=== PATIENT | male | born 1970 | race African-American/Black ===

== ENCOUNTER 2016-10-02 17:32 | Emergency (ER) | payer SELFPAY ==
[2016-10-02] MEDS ORDERED: NS 0.9% 1000 ML* 1,000 ML IV SCH (18:30)
[2016-10-02] MEDS ORDERED: NS 0.9% 1000 ML* 1,000 ML IV ONE (18:31)
[2016-10-02 18:47] LABS: Hematocrit 45 % (42-52); Hemoglobin 15.1 g/dl (14.0-18.0); Mean Corpuscular HGB Conc 33 g/dl (31-36); Mean Corpuscular Hemoglobin 29 pg (27-31); Mean Corpuscular Volume 87 fL (80-94); Mean Platelet Volume 9 um3 (7.4-10.4); Red Blood Count 5.24 10^6/ul (4.0-5.4); Red Cell Distribution Width 14 % (10.5-15); White Blood Count 6.2 10^3/ul (3.5-10.8)
[2016-10-02] MEDS ORDERED: oxyCODONE TAB* 5 MG TAB PO ONE ×2 (18:53→21:09)
[2016-10-02] MEDS ORDERED: oxyCODONE TAB* 5 MG TAB ONE (18:57)
[2016-10-02 19:00] LABS: ALT 12 U/L (7-52); AST 18 U/L (13-39); Albumin 3.9 g/dL (3.2-5.2); Alkaline Phosphatase 74 U/L (34-104); Anion Gap 5 mmol/L (2-11); BUN/Creatinine Ratio 11.1 (8-20); Blood Urea Nitrogen 14 mg/dL (6-24); C Reactive Protein 64.59 mg/L (< 5.00); CO2 Carbon Dioxide 30 mmol/L (22-32); Calcium 9.3 mg/dL (8.6-10.3); Chloride 99 mmol/L (101-111); Creatine Kinase 80 U/L (10-223); EGFR African American 79.6 (>60); EGFR Non-African American 61.9 (>60); Globulin 3.7 g/dL (2-4); Glucose 103 mg/dL (70-100); Lipase 14 U/L (11.0-82.0); Sodium 134 mmol/L (133-145); Total Protein 7.6 g/dL (6.4-8.9)
[2016-10-02 19:28] LABS: Valproic Acid < 13.0 mcg/mL (50-100)
[2016-10-02 19:33] LABS: TSH (Thyroid Stimulating Horm) 0.29 mcIU/mL (0.34-5.60)
[2016-10-02 20:04] LABS: Urine Bacteria Absent (Absent); Urine Bilirubin Negative (Negative); Urine Glucose Negative (Negative); Urine Nitrite Negative (Negative)
[2016-10-02] MEDS ORDERED: Valproic Acid CAP(*) 250 MG PO ONE ×2 (20:14→20:15)
[2016-10-02] MEDS ORDERED: Phenytoin CAP(*) 100 MG CAP.ER PO ONE ×2 (20:16→20:18)
[2016-10-02] MEDS ORDERED: levETIRAcetam TAB* 500 MG PO ONE ×2 (20:19→20:20)
[2016-10-02] MEDS ORDERED: Amoxicillin/Clavulanate TAB* 875 MG PO ONE ×2 (20:49→20:50)
[2016-10-02 20:50] VITALS: BP 118/79
--- NOTE | 2016-10-02 20:52 | ED ---
Raghav Hoskins Alok, scribed for Daniel Godoy MD on 10/02/16 at 1938 . Complex/Multi-Sys Presentation - HPI Summary HPI Summary: Patient is a 46 year-old male with a history of seizures BIBA to [facility] for evaluation of seizure earlier today. He states that he also had two seizures yesterday, and has not been taking his seizure medication for the last 3 months. He has taken Keppra 400 mg QD, Dilantin 400 mg QD, and Depakote 1500 mg BID. He also reports URI-like symptoms including rhinorrhea, ear ache, sore throat, diffuse myalgia, and cough. - History Of Current Complaint Chief Complaint: EDSeizure Time Seen by Provider: 10/02/16 18:29 Hx Obtained From: Patient Onset/Duration: Gradual Onset, Lasting Minutes, Resolved Timing: Minutes Severity Currently: Mild Severity Initially: Moderate Associated Signs And Symptoms: Positive: Cough, Other - sore throat, ear ache, myalgia, rhinorrhea - Allergies/Home Medications Allergies/Adverse Reactions: Allergies Allergy/AdvReac Type Severity Reaction Status Date / Time Acetaminophen [From Tylenol] Allergy Vomiting Verified 10/02/16 19:33 Aspirin Allergy Vomiting Verified 10/02/16 19:33 Ibuprofen Allergy Vomiting Verified 10/02/16 19:33 Soy Allergy Allergy See Comment Verified 10/02/16 19:33 PMH/Surg Hx/FS Hx/Imm Hx Respiratory History: Reports: Hx Chronic Obstructive Pulmonary Disease (COPD) Neurological History: Reports: Hx CVA, Hx Seizures, Other Neuro Impairments/ Disorders - Vertigo, Addisons Infectious Disease History: Yes Infectious Disease History: Denies: Traveled Outside the [place] in Last 30 Days - Family History Known Family History: Positive: Cardiac Disease, Hypertension, Diabetes - Social History Occupation: Unemployed Lives: Alone Alcohol Use: None Substance Use Type: Reports: None Smoking Status (MU): Former Smoker Review of Systems Negative: Fever Positive: Sore Throat, Ear Ache, Nasal Discharge Positive: Cough Positive: Myalgia Neurological: Other - seizures All Other Systems Reviewed And Are Negative: Yes Physical Exam - Summary Physical Exam Summary: General: Well-appearing, no pain distress Skin: Warm, color reflects adequate perfusion, dry Head/Face: Normal Eyes: EOMI, MANUELA ENT: Normal Neck: Supple, nontender Respiratory: CTA, breath present Cardiovascular: RRR Abdominal: Nontender, soft Bowel: Present Misc: Normal; strength/ROM intact Neuro: Normal; sensory/motor intact, A&Ox3. Numbness right lower cheek. Psych: Affect/mood appropriate Triage Information Reviewed: Yes Vital Signs On Initial Exam: Initial Vitals Temp Pulse Resp BP Pulse Ox 98.8 F 90 18 130/68 99 10/02/16 17:34 10/02/16 17:34 10/02/16 17:34 10/02/16 17:34 10/02/16 17:34 Vital Signs Reviewed: Yes - [place] Coma Scale Coma Scale Total: 15 Diagnostics - Vital Signs Vital Signs Temp Pulse Resp BP Pulse Ox 10/02/16 17:34 98.8 F 90 18 130/68 99 - Laboratory Lab Results: Lab Results 10/02/16 Range/Units 17:45 WBC 6.2 (3.5-10.8) 10^3/ul RBC 5.24 (4.0-5.4) 10^6/ul Hgb 15.1 (14.0-18.0) g/dl Hct 45 (42-52) % MCV 87 (80-94) fL MCH 29 (27-31) pg MCHC 33 (31-36) g/dl RDW 14 (10.5-15) % Plt Count 190 (150-450) 10^3/ul MPV 9 (7.4-10.4) um3 Neut % (Auto) 59.6 (38-83) % Lymph % (Auto) 23.0 L (25-47) % [place] % (Auto) 15.7 H (1-9) % Eos % (Auto) 1.0 (0-6) % Baso % (Auto) 0.7 (0-2) % Absolute Neuts (auto) 3.7 (1.5-7.7) 10^3/ul Absolute Lymphs (auto) 1.4 (1.0-4.8) 10^3/ul Absolute Monos (auto) 1.0 H (0-0.8) 10^3/ul Absolute Eos (auto) 0.1 (0-0.6) 10^3/ul Absolute Basos (auto) 0 (0-0.2) 10^3/ul Absolute Nucleated RBC 0.01 10^3/ul Nucleated RBC % 0.2 Result Diagrams: 10/02/16 17:45 10/02/16 17:45 Lab Statement: Any lab studies that have been ordered have been reviewed, and results considered in the medical decision making process. Re-Evaluation - Re-Evaluation First Eval Re-Evaluation Time: 20:44 Comment: Lab results reviewed and discussed with the patient. Complex Multi-Symp Course/Dx Assessment/Plan: PATIENT WILL CONTACT COMPUTER INFORMATION SYSTEMS PROFESSOR TOMORROW FOR ASSISTANCE ATTAINING INSURANCE TO GET HIS ANTI SEIZURE MEDICATIONS. URGENT RX FOR AUGMENTIN FOR SINUSITIS SX. DISCHARGE HOME STABLE. - Diagnoses Provider Diagnoses: Seizure disorder, Sinusitis Discharge - Discharge Plan Condition: Stable Disposition: HOME Prescriptions: Amoxicillin/Clavulanate TAB* [Augmentin TAB 875*] 875 mg PO BID #20 tab Patient Education Materials: Epilepsy (ED), Sinusitis (ED) Additional Instructions: FOLLOW UP WITH YOUR DOCTOR. TAKE THE AUGMENTIN (ANTIBIOTIC) DIRECTED. FOLLOW UP WITH YOUR BUILDING ASSOCIATE TO GET YOUR ANTI SEIZURE MEDICATION PRESCRIPTIONS. RETURN TO THE EMERGENCY DEPARTMENT FOR ANY WORSENING OF YOUR CONDITION OR QUESTIONS OR CONCERNS. The documentation as recorded by the Raghav weiss Alok accurately reflects the service I personally performed and the decisions made by me, Daniel Godoy MD.
== END 2016-10-02 20:50 | disposition home or self-care (01) ==
LOC: ED 17:32
DX: G40.909 Epilepsy, unspecified, not intractable, without status epilepticus (principal); J32.9 Chronic sinusitis, unspecified; H92.09 Otalgia, unspecified ear; R05 Cough; J02.9 Acute pharyngitis, unspecified; J34.89 Other specified disorders of nose and nasal sinuses; Z87.891 Personal history of nicotine dependence
CPT/HCPCS: 36415; 80053; 80164; 80177; 81003; 81015; 82550; 82553; 83605; 83690; 83735; 84443; 84484; 85025; 85610; 85730; 86140; 87086; 99284; A9270-GY

== ENCOUNTER 2016-11-04 00:27 | Emergency (ER) | payer MEDICAID ==
[2016-11-04] MEDS ORDERED: NS 0.9% 1000 ML* 1,000 ML IV ONE (00:31)
[2016-11-04] MEDS ORDERED: LORazepam INJ* 2 MG/ML 1 ML VIAL IV ONE (00:31)
[2016-11-04] MEDS ORDERED: levETIRAcetam IV* 500 MG in NS 0.9% 100 ML* 100 ML IVPB ONE (00:31)
[2016-11-04 02:07] LABS: Hematocrit 42 % (42-52); Hemoglobin 14.2 g/dl (14.0-18.0); Mean Corpuscular HGB Conc 34 g/dl (31-36); Mean Corpuscular Hemoglobin 29 pg (27-31); Mean Corpuscular Volume 88 fL (80-94); Mean Platelet Volume 8 um3 (7.4-10.4); Red Blood Count 4.83 10^6/ul (4.0-5.4); Red Cell Distribution Width 14 % (10.5-15); White Blood Count 4.5 10^3/ul (3.5-10.8)
[2016-11-04 02:14] LABS: Urine Bilirubin Negative (Negative); Urine Glucose Negative (Negative); Urine Nitrite Negative (Negative)
[2016-11-04 02:15] LABS: ALT 11 U/L (7-52); Albumin 3.5 g/dL (3.2-5.2); Alkaline Phosphatase 61 U/L (34-104); BUN/Creatinine Ratio 9.3 (8-20); Blood Urea Nitrogen 11 mg/dL (6-24); CO2 Carbon Dioxide 24 mmol/L (22-32); Calcium 8.1 mg/dL (8.6-10.3); Chloride 108 mmol/L (101-111); EGFR African American 85.9 (>60); EGFR Non-African American 66.8 (>60); Globulin 2.8 g/dL (2-4); Glucose 92 mg/dL (70-100); Magnesium 1.9 mg/dL (1.9-2.7); Sodium 140 mmol/L (133-145); Total Protein 6.3 g/dL (6.4-8.9)
[2016-11-04 02:17] LABS: AST 15 U/L (13-39); Anion Gap 8 mmol/L (2-11); Potassium 3.3 mmol/L (3.5-5.0)
[2016-11-04 02:18] LABS: Alcohol 112 mg/dL (<10)
--- NOTE | 2016-11-04 02:37 | ED ---
Dario Hoskins Billy, scribed for Ivan Puente MD on 11/04/16 at 0110 . Neurological HPI - HPI Summary HPI Summary: Patient is a 46 year-old male with a history of epilepsy coming to [facility] for evaluation of seizure today. Patient is BIBA from home after his girlfriend witnessed him have the seizure. His girlfriend states that he has been compliant with his medications. EMS states that when they arrived, the patient awoke and was alert and oriented, but he had another episode en route. Positive EtOH tonight.Pt on 4 anti convulsant meds, variable comoliance in past - History of Current Complaint Chief Complaint: EDSeizure Stated Complaint: AMS Time Seen by Provider: 11/04/16 00:30 Hx Obtained From: Family/Sound Installation Worker, EMS Onset/Duration: Sudden Onset Timing: Sudden Onset Onset Severity: Moderate Current Severity: Moderate Neurological Deficit Location: Generalized Seizure Character: Generalized Aggravating: Unknown Alleviating: Unknown - Allergy/Home Medications Allergies/Adverse Reactions: Allergies Allergy/AdvReac Type Severity Reaction Status Date / Time Acetaminophen [From Tylenol] Allergy Vomiting Verified 10/02/16 19:33 Aspirin Allergy Vomiting Verified 10/02/16 19:33 Ibuprofen Allergy Vomiting Verified 10/02/16 19:33 Soy Allergy Allergy See Comment Verified 10/02/16 19:33 PMH/Surg Hx/FS Hx/Imm Hx Respiratory History: Reports: Hx Chronic Obstructive Pulmonary Disease (COPD) Neurological History: Reports: Hx CVA, Hx Seizures, Other Neuro Impairments/ Disorders - Vertigo, Addisons Infectious Disease History: No Infectious Disease History: Denies: Traveled Outside the [place] in Last 30 Days - Family History Known Family History: Positive: Cardiac Disease, Hypertension, Diabetes - Social History Alcohol Use: None Substance Use Type: Reports: None Smoking Status (MU): Former Smoker Review of Systems Negative: Fever Neurological: Other - seizure All Other Systems Reviewed And Are Negative: Yes Physical Exam Triage Information Reviewed: Yes Vital Signs On Initial Exam: Initial Vitals Resp 24 11/04/16 00:41 Vital Signs Reviewed: Yes Appearance: Positive: No Pain Distress, Well-Nourished Skin: Positive: Warm Head/Face: Positive: Normal Head/Face Inspection Eyes: Positive: MANUELA ENT: Positive: Hearing grossly normal Neck: Positive: Supple, Nontender Respiratory/Lung Sounds: Positive: Breath Sounds Present Cardiovascular: Positive: RRR Abdomen Description: Positive: Nontender, Soft Bowel Sounds: Positive: Present Musculoskeletal: Positive: Strength/ROM Intact Neurological: Positive: Sensory/Motor Intact Psychiatric: Positive: Affect/Mood Appropriate Diagnostics - Vital Signs Vital Signs Temp Pulse Resp BP Pulse Ox 11/04/16 00:49 98.7 F 87 18 130/94 95 11/04/16 00:41 24 - Laboratory Lab Results: Lab Results 11/04/16 11/04/16 11/04/16 Range/Units 01:52 01:52 01:52 WBC 4.5 (3.5-10.8) 10^3/ul RBC 4.83 (4.0-5.4) 10^6/ul Hgb 14.2 (14.0-18.0) g/dl Hct 42 (42-52) % MCV 88 (80-94) fL MCH 29 (27-31) pg MCHC 34 (31-36) g/dl RDW 14 (10.5-15) % Plt Count 187 (150-450) 10^3/ul MPV 8 (7.4-10.4) um3 Neut % (Auto) 53.3 (38-83) % Lymph % (Auto) 35.3 (25-47) % [place] % (Auto) 9.2 H (1-9) % Eos % (Auto) 1.3 (0-6) % Baso % (Auto) 0.9 (0-2) % Absolute Neuts (auto) 2.4 (1.5-7.7) 10^3/ul Absolute Lymphs (auto) 1.6 (1.0-4.8) 10^3/ul Absolute Monos (auto) 0.4 (0-0.8) 10^3/ul Absolute Eos (auto) 0.1 (0-0.6) 10^3/ul Absolute Basos (auto) 0 (0-0.2) 10^3/ul Absolute Nucleated RBC 0.01 10^3/ul Nucleated RBC % 0.1 INR (Anticoag Therapy) 0.93 (0.89-1.11) Sodium 140 (133-145) mmol/L Potassium 3.3 L (3.5-5.0) mmol/L Chloride 108 (101-111) mmol/L Carbon Dioxide 24 (22-32) mmol/L Anion Gap 8 (2-11) mmol/L BUN 11 (6-24) mg/dL Creatinine 1.18 H (0.67-1.17) mg/dL Est GFR ( Amer) 85.9 (>60) Est GFR (Non-Af Amer) 66.8 (>60) BUN/Creatinine Ratio 9.3 (8-20) Glucose 92 (70-100) mg/dL Lactic Acid (0.5-2.0) mmol/L Calcium 8.1 L (8.6-10.3) mg/dL Magnesium 1.9 (1.9-2.7) mg/dL Total Bilirubin 0.30 (0.2-1.0) mg/dL AST 15 (13-39) U/L ALT 11 (7-52) U/L Alkaline Phosphatase 61 (34-104) U/L Total Protein 6.3 L (6.4-8.9) g/dL Albumin 3.5 (3.2-5.2) g/dL Globulin 2.8 (2-4) g/dL Albumin/Globulin Ratio 1.3 (1-3) Urine Color Urine Appearance Urine pH (5-9) Ur Specific Laie (1.010-1.030) Urine Protein (Negative) Urine Ketones (Negative) Urine Blood (Negative) Urine Nitrate (Negative) Urine Bilirubin (Negative) Urine Urobilinogen (Negative) Ur Leukocyte Esterase (Negative) Urine Glucose (Negative) Urine Ascorbic Acid (Negative) Serum Alcohol 112 H (<10) mg/dL 11/04/16 11/04/16 Range/Units 01:52 02:00 WBC (3.5-10.8) 10^3/ul RBC (4.0-5.4) 10^6/ul Hgb (14.0-18.0) g/dl Hct (42-52) % MCV (80-94) fL MCH (27-31) pg MCHC (31-36) g/dl RDW (10.5-15) % Plt Count (150-450) 10^3/ul MPV (7.4-10.4) um3 Neut % (Auto) (38-83) % Lymph % (Auto) (25-47) % [place] % (Auto) (1-9) % Eos % (Auto) (0-6) % Baso % (Auto) (0-2) % Absolute Neuts (auto) (1.5-7.7) 10^3/ul Absolute Lymphs (auto) (1.0-4.8) 10^3/ul Absolute Monos (auto) (0-0.8) 10^3/ul Absolute Eos (auto) (0-0.6) 10^3/ul Absolute Basos (auto) (0-0.2) 10^3/ul Absolute Nucleated RBC 10^3/ul Nucleated RBC % INR (Anticoag Therapy) (0.89-1.11) Sodium (133-145) mmol/L Potassium (3.5-5.0) mmol/L Chloride (101-111) mmol/L Carbon Dioxide (22-32) mmol/L Anion Gap (2-11) mmol/L BUN (6-24) mg/dL Creatinine (0.67-1.17) mg/dL Est GFR ( Amer) (>60) Est GFR (Non-Af Amer) (>60) BUN/Creatinine Ratio (8-20) Glucose (70-100) mg/dL Lactic Acid 1.8 (0.5-2.0) mmol/L Calcium (8.6-10.3) mg/dL Magnesium (1.9-2.7) mg/dL Total Bilirubin (0.2-1.0) mg/dL AST (13-39) U/L ALT (7-52) U/L Alkaline Phosphatase (34-104) U/L Total Protein (6.4-8.9) g/dL Albumin (3.2-5.2) g/dL Globulin (2-4) g/dL Albumin/Globulin Ratio (1-3) Urine Color Yellow Urine Appearance Clear Urine pH 5.0 (5-9) Ur Specific Laie 1.011 (1.010-1.030) Urine Protein Negative (Negative) Urine Ketones Negative (Negative) Urine Blood Negative (Negative) Urine Nitrate Negative (Negative) Urine Bilirubin Negative (Negative) Urine Urobilinogen Negative (Negative) Ur Leukocyte Esterase Negative (Negative) Urine Glucose Negative (Negative) Urine Ascorbic Acid * H (Negative) Serum Alcohol (<10) mg/dL Result Diagrams: 11/04/16 01:52 11/04/16 01:52 Lab Statement: Any lab studies that have been ordered have been reviewed, and results considered in the medical decision making process. NIH Scale - NIH Scale Level of Consciousness: Alert/Keenly Responsive Ask Patient the Month and His/Her Age: Both Correct Ask Pt to Open/Close Eyes and Towel Hemmer/Release Non-Paretic Hand: Both Correctly Best Gaze (Only Horizontal Eye Movement): Normal Visual Field Testing: No Visual Loss Facial Paresis-Pt to Smile & Close Eyes or Grimace Symmetry: Normal/Symmetrical Motor Function - Right Arm: No Drift-Holds 10 Seconds Motor Function - Left Arm: No Drift-Holds 10 Seconds Motor Function - Right Leg: No Drift-Holds 10 Seconds Motor Function - Left Leg: No Drift-Holds 10 Seconds Limb Ataxia-Must be out of Proportion to Weakness Present: Absent Sensory (Use Pinprick to Test Arms/Legs/Trunk/Face): Normal Best Language (Describe Picture, Name Items): No Aphasia Dysarthria (Read Several Words): Normal Extinction and Inattention: No Abnormality Total Score: 0 Re-Evaluation - Re-Evaluation First Eval Re-Evaluation Time: 03:00 Change: Improved - pt awake,given keppra, while in ed waiting room recuurent sz , informed pt on 4 meds levels drawn, subtherapeutic, loaded with dilantin Second Eval Re-Evaluation Time: 06:50 - no further seizures Change: Improved Course/Dx - Diagnoses Provider Diagnoses: Seizure Discharge - Discharge Plan Condition: Stable Disposition: HOME Patient Education Materials: Recurrent Seizures in Adults (ED) Referrals: Rosalinda Jones MD [Medical Doctor] - Tapan Morales MD [Primary Care Provider] - Additional Instructions: TAKE MEDICATIONS PRESCRIBED. DO NOT DRINK ALCOHOL. FOLLOW UP WITH NEUROLOGIST DR. JONES. The documentation as recorded by the Dario weiss Billy accurately reflects the service I personally performed and the decisions made by , Ivan Puente MD.
[2016-11-04] MEDS ORDERED: Phenytoin IV(*) 1,000 MG in NS 0.9% 250 ML* 250 ML IV ONE (05:16)
[2016-11-04 07:48] VITALS: BP 113/74
== END 2016-11-04 07:46 | disposition home or self-care (01) ==
LOC: ED 00:27
DX: R56.9 Unspecified convulsions (principal)
CPT/HCPCS: 36415; 80053; 80164; 80177; 80184; 80185; 80320; 81003; 83605; 83735; 85025; 85610; 96374; 99283; G0480; J1165; J2060

== ENCOUNTER 2016-11-04 19:27 | Inpatient (IN) | payer MEDICAID ==
--- NOTE | 2016-11-04 20:25 | ED ---
Hugh Hoskins Michael, scribed for Ivan Puente MD on 11/04/16 at 1955 . Altered Mental Status - HPI Summary HPI Summary: 46 y/o male was BIBA to the ED for evaluation of 5 sz episodes today. The girlfriend witnessed the sz episodes today, and while he was en route to the ED , the pt had 2 more sz episodes in the ambulance. He lost consciousness during the episode, and when the pt woke up he c/o a HOPE. He denies ETOH use today and states he has been compliant with his medication. The PMHx is significant for sz. He was seen on 11/04/16 at 0110 for a witnessed sz episode. - History Of Current Complaint Stated Complaint: SEIZURE Time Seen by Provider: 11/04/16 19:41 Hx Obtained From: Patient, EMS, Medical Records Onset/Duration: Suddenly Timing: Intermittent Severity Initially: Moderate Severity Currently: Mild Aggravating Factor(s): Unknown Alleviating Factor(s): Unknown Associated Signs And Symptoms: Positive: Seizure - LOC, Headache Related History: Seizure - Allergies/Home Medications Allergies/Adverse Reactions: Allergies Allergy/AdvReac Type Severity Reaction Status Date / Time Acetaminophen [From Tylenol] Allergy Vomiting Verified 10/02/16 19:33 Aspirin Allergy Vomiting Verified 10/02/16 19:33 Ibuprofen Allergy Vomiting Verified 10/02/16 19:33 Soy Allergy Allergy See Comment Verified 10/02/16 19:33 Home Medications: Home Medications Divalproex ER TAB(*) [Depakote ER TAB(*)] 1,500 mg PO BID 11/04/16 [History Confirmed 11/04/16] Fludrocortisone Acetate TAB* [Florinef TAB*] 0.2 mg PO DAILY 11/04/16 [History Confirmed 11/04/16] Phenytoin CAP(*) [Dilantin CAP(*)] 400 mg PO QAM 11/04/16 [History Confirmed ] levETIRAcetam TAB* [Keppra TAB*] 500 mg PO BID 11/04/16 [History Confirmed 11/04] Amoxicillin/Clavulanate TAB* 1 tab PO BID 11/05/16 [History Confirmed 11/05/16] PMH/Surg Hx/FS Hx/Imm Hx Respiratory History: Reports: Hx Chronic Obstructive Pulmonary Disease (COPD) Neurological History: Reports: Hx CVA, Hx Seizures, Other Neuro Impairments/ Disorders - Vertigo, Addisons - Family History Known Family History: Positive: Cardiac Disease, Hypertension, Diabetes - Social History Occupation: Unemployed Lives: Alone Alcohol Use: None Substance Use Type: Reports: None Smoking Status (MU): Former Smoker Review of Systems Negative: Fever Neurological: Other - sz Positive: Headache, Syncope All Other Systems Reviewed And Are Negative: Yes Physical Exam Vital Signs On Initial Exam: Initial Vitals Temp Pulse Resp BP Pulse Ox 97.9 F 85 16 122/53 100 11/04/16 19:57 11/04/16 19:57 11/04/16 19:57 11/04/16 19:57 11/04/16 19:57 Appearance: Positive: Well-Appearing, No Pain Distress Skin: Positive: Warm Head/Face: Positive: Normal Head/Face Inspection Eyes: Positive: MANUELA ENT: Positive: Hearing grossly normal Neck: Positive: Supple Respiratory/Lung Sounds: Positive: Clear to Auscultation, Breath Sounds Present Cardiovascular: Positive: RRR Abdomen Description: Positive: Nontender, Soft Musculoskeletal: Positive: Strength/ROM Intact Neurological: Positive: Sensory/Motor Intact Psychiatric: Positive: Affect/Mood Appropriate Diagnostics - Vital Signs Vital Signs Temp Pulse Resp BP Pulse Ox 11/04/16 19:59 97.9 F 83 16 113/69 100 11/04/16 19:57 97.9 F 85 16 122/53 100 - Laboratory Result Diagrams: 11/04/16 20:30 11/04/16 20:30 Lab Statement: Any lab studies that have been ordered have been reviewed, and results considered in the medical decision making process. Re-Evaluation - Re-Evaluation First Eval Re-Evaluation Time: 20:00 - consult from neuro, will admit Altered Mental Statu Course/Dx - Course Course Of Treatment: Consulted with Dr. Martinez (neurology) at 2018- discussed the course of treatment for the patient. Discussed pt care with Dr. Lockwood (Hospitalist) at 2149 and pt will be accepted as an admission. - Diagnoses Discharge Diagnoses: Seizures - Provider Notifications Instructed by Provider To: Admit As Inpatient Discharge - Discharge Plan Condition: Fair Disposition: ADMITTED TO [facility] The documentation as recorded by the Hugh weiss Michael accurately reflects the service I personally performed and the decisions made by me, Ivan Puente MD.
[2016-11-04 20:41] LABS: Hematocrit 44 % (42-52); Hemoglobin 14.3 g/dl (14.0-18.0); Mean Corpuscular HGB Conc 33 g/dl (31-36); Mean Corpuscular Hemoglobin 28 pg (27-31); Mean Corpuscular Volume 87 fL (80-94); Mean Platelet Volume 8 um3 (7.4-10.4); Red Blood Count 5.03 10^6/ul (4.0-5.4); Red Cell Distribution Width 15 % (10.5-15); White Blood Count 5.1 10^3/ul (3.5-10.8)
[2016-11-04 20:54] LABS: ALT 13 U/L (7-52); AST 17 U/L (13-39); Albumin 3.7 g/dL (3.2-5.2); Alkaline Phosphatase 64 U/L (34-104); Anion Gap 4 mmol/L (2-11); BUN/Creatinine Ratio 8.5 (8-20); Blood Urea Nitrogen 11 mg/dL (6-24); CO2 Carbon Dioxide 31 mmol/L (22-32); Calcium 8.6 mg/dL (8.6-10.3); Chloride 103 mmol/L (101-111); Creatine Kinase 88 U/L (10-223); EGFR African American 76.8 (>60); EGFR Non-African American 59.7 (>60); Globulin 2.9 g/dL (2-4); Glucose 103 mg/dL (70-100); Magnesium 1.9 mg/dL (1.9-2.7); Potassium 4.2 mmol/L (3.5-5.0); Sodium 138 mmol/L (133-145); Total Protein 6.6 g/dL (6.4-8.9)
[2016-11-04 21:20] LABS: Phenytoin 15.6 mcg/mL (10-20)
--- NOTE | 2016-11-04 22:03 | CONSULT ---
Consult Consult: 11/04/16 neurology consult 46 yo RHM, lifelong unspecified seizure disorder (born with them, attributes to maternal etoh use during , unsure of diagnosis besides grand mal), ? 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 He suggests frequent seizures, including multiple daily episodes at times (up to 10-20 in a day); his fiance has seen him go a month between seizures. He apparently occasionally drives (she says he does not really drive.) He has no local neurologist; he used to see Dr Robb Lara (he says in [place]). He is on LEV 500mg bid (level was negligible a month ago; recalls being on 2500 total daily in past), PHE 400mg qd (level was 5 this am, now 15; he says he was bolused; recalls being on 800mg daily in half-way and being toxic); VPA 1500 bid (level was 17 this am, now 72; recalls being on ? 2500 bid in past). Remote AEDs included: PHB (stopped on own), CMZ and lyrica (latter 2 were for purposes other than seizure management ostensibly). He suggests taking his AEDs reliably. The ED apparently gave him PHE And LEV boluses last night. Allergies/Meds - per oct PMH - as per hpi, also ? 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; was incarcerated ROS - 10 point review as per hpi , otherwise negative; recalls prior period of significant weight loss attributed to addisons, occasional syncopal episodes general Examination: no apparent distress, no edema, male of stated age; vs per emr Neurologic Examination Mental Status: alert and oriented; affect reactive, no clear neglect, fluent speech Cranial Nerves: Funduscopy deferred, otherwise II-XII intact save right facial sensory asymmetry to touch; smith full to confrontation; mild ptosis Motor: normal bulk, tone and power; no drift or tremor Sensory: vibration and touch are comparatively decreased right side Reflexes: 2 throughout symmetrically. Plantar responses are equivocal to flexor Coordination: finger to nose is accurate Gait: deferred Serologies: CBC, coags, LFTs, ua are all normal or negative; Cr 1.3, etoh 112 Priors: CRP 65 and TSH 0.29 last month Imaging: none Impression: 46 yo RHM, lifelong unspecified seizure disorder ? due to maternal etoh use during , ? stroke (suggests right sensory dysfunction), Addisons disease (on florinef; used to be on salt tabs), presenting with multiple recurrent seizures, in context of at least social etoh use, at least yesterday. His prior neuro care and workup is unknown; he may very well have intractable epilepsy; as he is on 3 AEDs and may have trialed 3 others previously. Plan: 1. continue PHE 400mg daily and recheck am level (current likely normal due to bolus) 2. cont VPA 1500 bid and recheck am level to get accurate baseline 3. LEV 1000mg bolus po/IV and inc maintenance to 1000mg bid 4. consider HIV, HCV, aic testing 5. would hold off on CATALOGUE LIBRARIAN imaging, EEG pending outside records from prior neurologist, perhaps [place] workup as well.
[2016-11-04] MEDS: Divalproex ER TAB(*) 500 MG PO SCH (23:56)
[2016-11-04] MEDS: levETIRAcetam TAB* 500 MG PO SCH (23:56)
--- NOTE | 2016-11-05 04:24 | HP ---
HOSPITAL MEDICINE HISTORY AND PHYSICAL: DATE OF ADMISSION: 11/04/16 PRIMARY CARE PHYSICIAN: Dr. Morales. ATTENDING PHYSICIAN: Dr. Tapan Lockwood *(dictation provided by Ebony Zhu NP). CHIEF COMPLAINT: Seizures. HISTORY OF PRESENT ILLNESS: Mr. Zhu is a 46-year-old male with a past medical history of seizure disorder since and Saxis disease who presents today to the hospital with concern for seizures. Mr. Zhu states that he has been taking his medication regularly.. He and his girlfriend report that he had multiple seizures [id number] yesterday. He did feel a little bit better thereafter and was able to go out for few drinks at a bar and thereafter went home. Once home, he had multiple seizures again His girlfriend was quite concerned and had him brought to the emergency room. In the emergency room, he had labs that showed negligible levels of all of his seizure medications. The patient again confirmed that he had been taking his medications, but the levels were all very low. Suspicion was perhaps that Mr. Zhu was less than forthcoming about the compliance of his medication. The patient was bolused with Keppra and Dilantin was discharged to home from the emergency room. Today, the patient had multiple seizures, approximately 10 per the girlfriend's report. She describes the seizures as full body shaking followed by rigidity, followed by snoring respirations, and altered mental status for a brief period. The patient then complains of a severe headache. Mr. Zhu reports that he has had seizures since he was born. He reports that his mother had problems with alcohol and drug abuse drug the . He has been followed in multiple locations for seizure disorder including [facility] and [facility]. He states that his last neurologist was Dr. Robb Mariee who is in [place], [place]. His medications have most recently been prescribed by Dr. Morales. Other than the above mentioned complaints, Mr. Zhu denies any acute illness. PAST MEDICAL HISTORY: 1. Seizure disorder since , reported to be grand mal. 2. Guy disease. 3. PTSD. 4. Asthma. MEDICATIONS: Outpatient are: 1. Levetiracetam 500 mg p.o. b.i.d. 2. Divalproex 1500 mg p.o. b.i.d. 3. Florinef 0.2 mg p.o. daily. 4. Phenytoin 400 mg p.o. q.a.m. The patient stated that he had been previously on multiple medications for asthma but does not take them. FAMILY HISTORY: The patient reports vague family history in that there is heart disease, cancer and gout. SOCIAL HISTORY: No report of tobacco use. The patient smokes marijuana occasionally. He also drinks alcohol occasionally but not to excess and he states that he has never had withdrawal symptoms. His healthcare proxy is Erin. REVIEW OF SYSTEMS: Constitutional: No fevers, no chills, no unintended weight loss. Cardiac: No chest pain, no edema. Respiratory: No cough, no hemoptysis , or shortness of breath. GI: No nausea, vomiting, diarrhea, or abdominal pain. : No gross hematuria or dysuria. Neuro: The patient has right-sided sensory loss. Eyes: No visual complaints. ENT: No dysphagia. Musculoskeletal : No arthralgias, myalgias. Skin: No rashes or lesions. Psych: No depression or anxiety. PHYSICAL EXAMINATION GENERAL: Mr. Zhu is lying in the bed, he is in no acute distress. VITAL SIGNS: Temperature 97.9, pulse rate 83, respiratory rate 16, O2 saturation 100% on room air, blood pressure 113/69. LUNGS: Clear to auscultation bilaterally with no accessory muscle use and good aeration. HEART: S1, S2. No murmur, rub, or gallop and regular. ABDOMEN: Soft, nontender with bowel sounds positive x4. EXTREMITIES: No cyanosis or edema. SKIN: Intact. NEUROLOGIC: He is alert and oriented x3. He moves all extremities equally. There is no facial asymmetry or focal weakness. The patient does have decreased sensation in the right side, upper and lower extremity, along the face. DIAGNOSTIC STUDIES/LABORATORY DATA: WBC 5.1, hemoglobin 14.3, hematocrit 44, platelet count 194, INR 1.04. Sodium 138, potassium 4.2, chloride 103, serum bicarb 31, BUN 11, creatinine 1.30, glucose 103, lactic acid 2.3. Phenytoin level 15.6, valproic acid level 71.0, carbamazepine 2.0, phenobarbital less than 5. ASSESSMENT: Mr. Zhu is a 46-year-old male with the past medical history of seizure disorder and Saxis disease who presents to the hospital today with uncontrolled seizures. Plans are for observation in the hospital for the followin. Seizures. I appreciate the consultation from Dr. Martinez, who has recommended that we increase the patient's Keppra dose from 500 mg to 1000 mg b.i.d. He will continue on the same phenytoin and Depakote doses and we will check all levels in the a.m. but for his a.m. dose. The patient will have an EEG tomorrow. Recommendation is that the patient's records be obtained from Dr. Robb Mariee' office in [place]. The patient recommends that we check with [facility] for records as he feels like they will have the most complete information. 2. Sinusitis. The patient reports recent history of sinusitis. It appears like he perhaps did not complete a course of amoxicillin. He feels congested today, but he has no white count, no fever. I do not see a clear indication to continue any treatment at this time as it is likely viral. 3. Asthma. The patient has a reported history of asthma, but he feels like the medications he has always been on were never helpful. Plan to monitor for now, no evidence of exacerbation. 4. DVT prophylaxis with heparin subcu. 5. Disposition to the medical floor with seizure precautions. TIME SPENT: Approximately 60 minutes were spent on the admission of this patient; more than half the time spent with the patient at the bedside reviewing the events leading up to this hospitalization, performing the physical examination, reviewing the plan of care. EBONY ZHU NP CC: Dr. Morales* [id number]/[facility] #: [id number] [facility]ANESammy
[2016-11-05] MEDS: Heparin VIAL(*) 5000 UNITS/ML VIAL (FIVE THOUSAND) SUBCUT SCH ×3 (06:21→21:01)
[2016-11-05 07:41] LABS: Phenytoin 14.4 mcg/mL (10-20)
[2016-11-05] MEDS ORDERED: Fludrocortisone Acetate TAB* 0.1 MG PO SCH (09:00)
[2016-11-05] MEDS: levETIRAcetam TAB* 500 MG PO SCH ×2 (09:13→21:00)
[2016-11-05] MEDS: Phenytoin CAP(*) 100 MG CAP.ER PO SCH (09:14)
[2016-11-05] MEDS: Divalproex ER TAB(*) 500 MG PO SCH ×2 (09:14→21:01)
[2016-11-05] MEDS ORDERED: Fludrocortisone Acetate TAB* 0.1 MG PO ONE (11:10)
[2016-11-05] MEDS: oxyCODONE TAB* 5 MG TAB PO PRN ×2 (15:19→20:59)
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
--- NOTE | 2016-11-05 17:18 | RAD ---
HISTORY: Right-sided weakness COMPARISONS: None TECHNIQUE: The following sequences were obtained of the head: Sagittal T1-weighted images, axial T2-weighted images, axial FLAIR images, axial susceptibility weighted images, axial T1-weighted images, coronal T1, T2 and FLAIR images through the mesial temporal lobes. Additionally, axial diffusion-weighted images were obtained with calculated apparent diffusion coefficients. FINDINGS: HEMORRHAGE/INFARCT: There is no hemorrhage or acute infarct. MASSES/SHIFT: There is no mass or shift. EXTRA-AXIAL SPACES/MENINGES: There are no extra-axial fluid collections. SULCI AND VENTRICLES: The sulci and ventricles are normal in size and position for the patient's stated age. CEREBRUM: There are no focal brain parenchymal abnormalities. The mesial temporal lobes are symmetric in size, architecture, and signal intensity. The collateral white matter bundles are symmetric. The mamillary bodies and temporal horns of the lateral ventricles are symmetric in size. There is no appreciable cortical dysplasia or heterotopia BRAINSTEM: There are no focal parenchymal abnormalities. CEREBELLUM: There are no focal parenchymal abnormalities. The cerebellar tonsils are normal in size and position. SELLA: The sella is normal. PINEAL: The pineal region is clear. CP ANGLE/TEMPORAL BONES: The labyrinthine structures are grossly normal. VESSELS: Normal flow-voids are noted within the visualized vertebral vasculature. DIFFUSION ABNORMALITIES: There are no diffusion abnormalities. PARANASAL SINUSES/MASTOIDS: The paranasal sinuses are clear. ORBITS: The orbits are unremarkable. BONES AND SOFT TISSUE: No bone or soft tissue abnormalities are noted. OTHER: None IMPRESSION: NORMAL BRAIN. NO APPRECIABLE CORTICAL DYSPLASIA OR HETEROTOPIA. THE MESIAL TEMPORAL LOBES ARE SYMMETRIC.
--- NOTE | 2016-11-05 17:40 | PN ---
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 Patient reports that he has had nearly 30 seizures in the last 24 hours. He reports compliance with home medications. He states that it is typical to have multiple seizures monthly. He does not have a neurologist locally, previously seen in [place]. Patient reports a HOPE and R sided weakness this am. He states that he has had prior episodes of R weakness and reports that he has been diagnosed with prior strokes. Overnight, he did not experience any seizure episodes. This afternoon, he had what was described as a seizure by his girlfriend which was witnessed by nursing staff as a period of unresponsiveness. Objective Active Medications: Divalproex Sodium (Depakote Er Tab(*)) 1,500 mg PO BID [facility] Last Admin: 11/05/16 09:14 Dose: 1,500 mg Fludrocortisone Acetate (Florinef Tab*) 0.4 mg PO DAILY [facility] Heparin Sodium (Porcine) (Heparin Vial(*)) 5,000 units SUBCUT Q8HR [facility] Last Admin: 11/05/16 15:06 Dose: 5,000 units Levetiracetam (Keppra Tab*) 1,000 mg PO BID [facility] Last Admin: 11/05/16 09:13 Dose: 1,000 mg Oxycodone HCl (Roxycodone Tab*) 5 mg PO Q4H PRN PRN Reason: PAIN Last Admin: 11/05/16 15:19 Dose: 5 mg Phenytoin Sodium (Dilantin Cap(*)) 400 mg PO QAM [facility] Last Admin: 11/05/16 09:14 Dose: 400 mg Vital Signs: Temp Pulse Resp BP Pulse Ox 98.1 F 76 16 112/64 97 11/05/16 07:24 11/05/16 07:24 11/05/16 15:19 11/05/16 07:24 11/05/16 07:24 Appearance: This is a middle aged gentleman in [facility] who appears quite lethargic and has an abnormal affect. Ears/Nose/Mouth/Throat: Mucous Membranes Moist Respiratory: Symmetrical Chest Expansion and Respiratory Effort, Clear to Auscultation Cardiovascular: NL Sounds; No Murmurs; No JVD, RRR Abdominal: NL Sounds; No Tenderness; No Distention Extremities: No Edema Skin: No Rash or Ulcers Neurological: Alert and Oriented x 3, - - CN II-XII intact, RUE/RLE 4/5 strength with left sided extremities WNL. 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 - Patient Problems (1) Seizure disorder Comment: Patient reports multiple seizures prior to admission, frequency has decreased since admission Verbally reviewed EEG with neurologist, Dr Donald, which was reportedly normal Patient reports prior compliance with anti-epileptics Keppra dose has been increased to 1000mg bid Cont phenytoin and depakote Repeat trough serum levels tomorrow am MRI and prior neurology records are pending Greatly appreciate input from neurology (2) Hemiplegia Comment: Patient reports R sided weakness this am which he states has been present in the past and associated with prior CVAs MRI ordered and pending (3) Springfield's disease Comment: Normotensive Cont Florinef (4) Asthma Comment: Without acute exacerbation Status and Disposition: Patient requires continued hospital stay. Convert to inpatient status. Pending MRI and review of prior neurology records
--- NOTE | 2016-11-05 18:50 | CONS ---
CONSULTATION NOTE: DATE OF CONSULT: 11/05/16 PATIENT OF: SHANE Daniel. HISTORY: This is a neurological followup on this 46-year-old right-handed man who has had chronic seizure disorder, at times many seizures a day but would go a month or more without any. He has had a cluster of seizures recently, he told me 30 in the past few days, but only 4 today. He could not describe the seizures today, but I spoke to Margarito Montero who told me that the seizures were brief staring spells lasting seconds. Afterwards, he has a headache and is tired. He may have had bigger seizures in the past. I tried to reach Dr. Mariee at 4:15, but his office was closed and he is inaccessible. It is unclear what his prior workup has been at this point. MEDICATIONS: Adjusted yesterday by Dr. Martinez and are currently: 1. Depakote 1500 b.i.d. 2. Dilantin 400 mg daily. 3. Keppra 1000 mg twice a day. PHYSICAL EXAM: Temperature 98.1, pulse 76, respirations 16, blood pressure 112/ 64. He was alert and interactive, although a poor historian. Cranial nerves II through XII were nonfocal and intact. Motor exam revealed normal tone and strength, although earlier he had some left-sided weakness per Margarito Montero. Chest: Clear. Cardiovascular: Regular rate and rhythm. Abdomen: Soft with positive bowel sounds. DIAGNOSTIC STUDIES/LAB DATA: His EEG including during times with apparent myoclonic jerks was normal and showed no discharges. He is in the process of getting an MRI scan now. He had Dilantin level of 14.4 today, Depakote is 64. IMPRESSION: Elroy's history is unclear in terms of how much of a change his current spells are from his baseline. I will get Dr. Mariee' records tomorrow. Today, he had significantly fewer spells than he has had in the past few days' time, but if he has had no long-term monitoring and is having daily episodes, then we will consider getting monitoring depending on what he does overnight and what his past history is. I have discussed with Winston. For now, there have been recent changes in anticonvulsants, so I did not make any further changes, but we are going to be checking his levels again tomorrow to make sure he was compliant before is not trending to supratherapeutic levels. We will also see what his MRI scan shows. Thank you for sharing his case. [id number]/[facility] #: [id number] SAMARA
[2016-11-06] MEDS: oxyCODONE TAB* 5 MG TAB PO PRN ×4 (01:33→15:11)
--- NOTE | 2016-11-06 02:00 | EEG ---
ELECTROENCEPHALOGRAPHY: DATE OF STUDY: DATE OF DICTATION: 11/05/16 - ROOM #[id number] PATIENT OF: SHANE Daniel CLINICAL PROBLEM: This 46-year-old man being evaluated for past history of seizures and had multiple seizures yesterday and there was apparently a seizure 10 minutes before EEG was started. The patient was alert and oriented at the time of the EEG, but was tired and has a bad headache. MEDICATIONS: Include: 1. Dilantin. 2. Keppra. 3. Depakote. 4. Florinef. REPORT: With the patient awake, background cerebral activity consist of moderate amplitude posterior dominant 10 Hz rhythm. With the patient asleep, background consisted of diffuse irregular delta and theta activity. Normal patterns of sleep including vertex waves are noted. Throughout this tracing, there was leg jerking, more on the right than the left, but on the left and occasionally with body jerking and twitching; however, there were no epileptiform potentials at any point during this tracing including no change in background during these twitching and jerking. No focal abnormalities or major asymmetries of background are noted. CLINICAL IMPRESSION: This awake and asleep EEG is within normal limits 10 minutes after a witnessed seizure and during the time of prominent leg and body jerks. [id number]/[facility] #: [id number] [facility]ITYSammy
[2016-11-06] MEDS: Heparin VIAL(*) 5000 UNITS/ML VIAL (FIVE THOUSAND) SUBCUT SCH ×2 (05:13→15:11)
[2016-11-06 06:06] LABS: Phenytoin 15.2 mcg/mL (10-20)
[2016-11-06] MEDS ORDERED: Fludrocortisone Acetate TAB* 0.1 MG PO SCH (09:00)
[2016-11-06] MEDS: levETIRAcetam TAB* 500 MG PO SCH (09:03)
[2016-11-06] MEDS: Phenytoin CAP(*) 100 MG CAP.ER PO SCH (09:03)
[2016-11-06] MEDS: Divalproex ER TAB(*) 500 MG PO SCH (09:04)
[2016-11-06] MEDS ORDERED: Influenza VAC *QUAD* 2016-17* 0.5 ML SYRINGE IM ONE (10:50)
--- NOTE | 2016-11-06 11:15 | PN ---
Subjective Date of Service: 11/06/16 Interval History: Patient had one seizure episode overnight last night, lasting ~90 sec. Apparently patient became unresponsive during that time, no generalized convulsions noted per nursing notes. I personally reviewed his telemetry during that time which showed no changes, no tachycardia or other dysrhythmias. Patient reports persistent R sided weakness and generalized aching with a headache, similar to yesterday. No other acute changes. Objective Active Medications: Divalproex Sodium (Depakote Er Tab(*)) 1,500 mg PO BID [facility] Last Admin: 11/06/16 09:04 Dose: 1,500 mg Fludrocortisone Acetate (Florinef Tab*) 0.4 mg PO DAILY [facility] Last Admin: 11/06/16 09:04 Dose: 0.4 mg Heparin Sodium (Porcine) (Heparin Vial(*)) 5,000 units SUBCUT Q8HR [facility] Last Admin: 11/06/16 05:13 Dose: 5,000 units Influenza Virus Vaccine (Fluarix *Quad* *) 0.5 ml IM .ONCE ONE Stop: 11/07/16 09:01 Levetiracetam (Keppra Tab*) 1,000 mg PO BID [facility] Last Admin: 11/06/16 09:03 Dose: 1,000 mg Oxycodone HCl (Roxycodone Tab*) 5 mg PO Q4H PRN PRN Reason: PAIN Last Admin: 11/06/16 11:06 Dose: 5 mg Phenytoin Sodium (Dilantin Cap(*)) 400 mg PO QAM [facility] Last Admin: 11/06/16 09:03 Dose: 400 mg Vital Signs: Temp Pulse Resp BP Pulse Ox 98.2 F 86 16 115/70 98 11/06/16 07:26 11/06/16 07:26 11/06/16 11:06 11/06/16 07:26 11/06/16 07:26 Oxygen Devices in Use Now: None Appearance: Well appearing, but fatigued in NAD. Accompanied by his girlfriend Neck: NL Appearance and Movements; NL JVP Respiratory: Symmetrical Chest Expansion and Respiratory Effort, Clear to Auscultation Cardiovascular: NL Sounds; No Murmurs; No JVD, RRR Abdominal: NL Sounds; No Tenderness; No Distention Extremities: No Edema Skin: No Rash or Ulcers Neurological: Alert and Oriented x 3, - - 4-5/5 strength RU and lower extremities, 5/5 left side, CNII-XII intact Result Diagrams: 11/04/16 20:30 11/04/16 20:30 Diagnostic Imaging: MRI brain - no acute process, no evidence of prior infarct EEG - no epileptiform activity Assess/Plan/Problems-Billing Assessment: This is a 46 yo male with a seizure d/o, Guy's disease, asthma and 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 - Patient Problems (1) Seizure disorder Comment: Patient reports multiple seizures prior to admission, frequency has decreased since admission EEG is unremarkable MRI brain is WNL Patient reports prior compliance with anti-epileptics Keppra dose has been increased to 1000mg bid Cont phenytoin and depakote Repeat trough serum levels remain WNL Greatly appreciate input from neurology Requested records from prior neurologist, Dr Mariee in [place], [place] which have not arrived yet Will discuss video EEG with Dr Donald depending on what it looks like his prior w/u has consisted of, patient does not recall any similar testing done in the past ?pseudoseizures (2) Hemiplegia Comment: Patient reports R sided weakness which has been persistent since yesterday MRI is unremarkable (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 Convert to inpatient status. Pending review of prior neurology records. Possible video EEG monitoring
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
[2016-11-06 16:08] VITALS: BP 125/74
--- NOTE | 2016-11-06 20:51 | EEG ---
HALF-WAY VIDEO/EEG MONITORING - Monitoring Monitoring Start Date: 11/06/16 Current Monitoring Session: 11/06/16 at 14:20 to 16:30 EEG Clinical Indication: Elroy Zhu is a 46 year old man with a history of seizures. He came into the hospital after having 5 seizures. He continues to have episodes of becoming non-responsive followed by severe headache and jerking of the upper extremities. He is treated with 3 anticonvulsants. Long-term monitoring was requested in order to characterize events and evaluate the EEG for epileptiform abnormalities. Introduction: INTRODUCTION: The EEG was monitored from 19 scalp electrodes which consisted of the standard parasagittal, temporal and midline leads of the International 10-20 system. EEG data were recorded on an [employer] system with simultaneous MPEG-4 digital video recording of patient behavior. EEG recording was in a monopolar montage with all electrodes referenced to FCz. Significant behavioral events were signaled by an event button, or putative electrical seizure events were detected by a computer program. All EEG data were reviewed in their entirety on a monitor with reconstruction of montages and adjustments of sensitivity and filtering. Simultaneous patient behavior was viewed on an adjacent monitor and correlated with the EEG. - Medications Active Medications: Dangeloantioscar Angelesra Depakote - Description Background: The patient was noted to frequently and quickly transition between waking and stage 2 sleep during this recording. The waking background showed appropriate organization with clearly defined anterior-posterior voltage and frequency gradients. There was a defined posterior dominant rhythm of 9 Hertz, which was symmetrical and showed normal reactivity. Anteriorly, there was the expected pattern of lower voltage and more irregular theta and beta rhythms. There was diffuse excess beta activity present diffusely. The sleep background was appropriately organized with well-developed spindles and vertex waves indicative of stage 2 sleep. These sleep transients showed appropriate morphology and were bilaterally synchronous and symmetrical. Deeper stages of sleep were not observed. No epileptiform abnormalities were recorded. The patient abruptly pulled all of the electrodes off at 16:30. Intericatal Epileptiform Activity: None Ictal Activity: None At 14:35, the patient was unresponsive to the mechatronics technologist calling his name and first had left hand twitching, then bilateral hand twitching. The EEG was normal during this event. - Impression Impression: This is a normal two hour EEG recording. There were no epileptiform abnormalities or seizures. The patient experienced one event of unresponsiveness associated with hand twitching. There were no associated EEG changes. This event was non-epileptic in nature.
--- NOTE | 2016-11-06 23:45 | PN ---
NEUROLOGY FOLLOWUP NOTE: DATE OF FOLLOWUP: DATE OF DICTATION: 11/06/16 - ROOM #ICU-06 PATIENT OF: SHANE Daniel HISTORY: According to Elroy and his friend, there may have been 2 or 3 seizures late last evening, and today Margarito notes that there was a single seizure lasting about 90 seconds where he was unresponsive according to nurse's notes. He has had some headache, but no other complaints. MEDICATIONS: His medications are unchanged since yesterday, include: 1. Depakote 1500 b.i.d. 2. Florinef. 3. Keppra 1000 b.i.d. 4. Dilantin 400 q.a.m. PHYSICAL EXAMINATION: Temperature 98.1, pulse 85, respirations 16, blood pressure 134/95. He is alert and oriented with normal speech and comprehension. Cranial nerves II through XII intact other than a mild facial asymmetry with decreased nasolabial fold on the right. Strength was 5/5 and did not detect any right-sided weakness today. Chest: Clear. Cardiovascular: Regular rate and rhythm. Abdomen: Soft with positive bowel sounds. DIAGNOSTIC STUDIES: His MRI scan was normal. His EEG was normal. IMPRESSION AND PLAN: I called Dr. Mariee who had no records of him at his [facility]' office for which he has been for several years' time. The patient now notes that he has been treated, but he has been in jail at various places including up in [place] and we are trying to get records from there. Given the uncertainty of his past medical history and frequency of his seizures, I have a call in to Dr. Healy about discussing overnight monitoring, that should be reasonable especially if we do not get more information in the short term. Of note, his levels remain therapeutic with Dilantin of 15 and Depakote of 56. [id number]/[facility] #: [id number] MTDD
--- NOTE | 2016-11-07 04:22 | DS ---
DISCHARGE SUMMARY: DATE OF ADMISSION: 11/04/16 DATE OF DISCHARGE: 11/06/16 PRIMARY CARE PROVIDER: Dr. Morales. CONSULTING NEUROLOGIST: Dr. Donald. DISCHARGING PROVIDER: SHANE Wolff SUPERVISING PHYSICIAN: Dr. Janeth Black.* (dictated by SHANE Wolff) PRIMARY DISCHARGE DIAGNOSES: 1. Left the hospital against medical advice. 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 4. Severe anxiety and other unspecified mood disorder. 5. Intermittent right-sided hemiplegia. SECONDARY DISCHARGE DIAGNOSIS: Asthma without acute exacerbation. DISCHARGE MEDICATIONS: 1. Depakote 1500 mg p.o. b.i.d. 2. Fludrocortisone 0.4 mg p.o. daily. 3. Dilantin 400 mg p.o. daily. 4. Keppra 500 mg p.o. twice daily. MEDICATION CHANGES: None. HOSPITAL IMAGING: MRI of the brain shows no evidence of an acute process or evidence of significant abnormalities. EEG is unremarkable. HOSPITAL COURSE: This is a 46-year-old gentleman with a reported history of seizure disorder, Guy's disease, and asthma, who presented to the emergency department on 2 occasions with complaints of multiple seizures. On his first visit to the emergency department, his serum antiepileptic levels were found to be profoundly low and the patient received boluses of Keppra and Dilantin and was discharged home. He had multiple additional seizures and returned to the emergency department for further evaluation. He was subsequently admitted to the hospital for further treatment and monitoring. The patient's initial night in the hospital was uneventful. He had no seizure activity, but was complaining of a headache and some right-sided weakness, which he states has been intermittent for him and he reported that he had been diagnosed with a prior stroke. An MRI was obtained of his brain, which was unremarkable, no evidence of acute, subacute or old infarct. EEG was obtained shortly after reported seizure, which was unremarkable. There was evidence of significant body jerk throughout EEG monitoring, but no epileptiform activity noted on EEG monitoring. The patient had multiple episodes during his hospital stay of unresponsiveness that was described as what is typical with his seizures. He continued to complain of headache and intermittent right-sided weakness. Attempts were made to obtain his prior records, but it was difficult to establish who he had seen previously for neurology care. He did identify Dr. Lara in [place], [place] as his neurologist but when his office was contacted, he had not been seen there in greater than 5 years. The patient was subsequently transferred to the ICU for video EEG monitoring. Shortly after the EEG monitoring was placed, the patient became severely anxious and requested to leave the hospital against medical advice. Despite attempts to offer anxiolytic medications and verbal support, the patient was adamant that he would like to leave the hospital. His girlfriend was present and offered to take responsibility for him in the case of leaving the hospital. The patient was clearly able to provide the consequences associated with leaving the hospital including seizure and possible . He was willing to accept those consequences. He subsequently signed AMA paperwork and agreed to stay for discharge to be completed. Discussed appropriate antiepileptic medications at the time of discharge with Dr. Donald. It seems that the most appropriate diagnosis at the time of discharge is likely pseudoseizures as he does not have evidence of epilepsy during his hospital stay. Dr. Donald suggested discharging him with his prior antiepileptic regimen and he should slowly be tapered off of his antiepileptics moving forward with further testing and monitoring. Dr. Donald is willing to see the patient in his outpatient neurology clinic for appropriate followup. DISPOSITION: The patient is leaving the hospital against medical advice. Appropriate paperwork has been completed and the patient was in an appropriate state of mind to make this decision and his girlfriend took responsibility for him leaving the hospital in this state. Medications as directed above. Recommend followup with Dr. Donald to establish neurology care and close followup with his primary care provider regarding this hospital admission. The patient would also greatly benefit from psychiatric care. I do believe that he has some mental health services through [facility]. SHANE WOLFF CC: Dr. Morales* [id number]/[facility] #: [id number] [facility] HOSPITALSammy
[2016-11-07] MEDS ORDERED: Influenza VAC *QUAD* 2016-17* 0.5 ML SYRINGE IM ONE (09:00)
== END 2016-11-06 18:03 | disposition left against medical advice (07) | DRG 53 ==
LOC: ED 19:27 → MED 21:47 → OBSVTOIN 11-05 14:29 → MEDTELE 11-05 18:38 → ICU 11-06 12:39
PROVIDERS: ADMIT Hospitalist; ATTEND Hospitalist
PROC: 3E0234Z Introduction of Serum, Toxoid and Vaccine into Muscle, Percutaneous Approach (ICD-10-PCS; principal; 2016-11-06)
PROC: 4A00X4Z Measurement of Central Nervous Electrical Activity, External Approach (ICD-10-PCS; 2016-11-06)
DX: G40.909 Epilepsy, unspecified, not intractable, without status epilepticus (principal); E27.1 Primary adrenocortical insufficiency; G81.91 Hemiplegia, unspecified affecting right dominant side; F43.10 Post-traumatic stress disorder, unspecified; F12.90 Cannabis use, unspecified, uncomplicated; J32.9 Chronic sinusitis, unspecified; F41.9 Anxiety disorder, unspecified; R51 Headache; F39 Unspecified mood [affective] disorder; J45.909 Unspecified asthma, uncomplicated; Z53.21 Procedure and treatment not carried out due to patient leaving prior to being seen by health care provider; Z88.8 Allergy status to other drugs, medicaments and biological substances; Z88.6 Allergy status to analgesic agent; Z91.018 Allergy to other foods; Z82.49 Family history of ischemic heart disease and other diseases of the circulatory system; Z83.3 Family history of diabetes mellitus; Z87.891 Personal history of nicotine dependence; Z80.9 Family history of malignant neoplasm, unspecified; Z82.61 Family history of arthritis; Z72.89 Other problems related to lifestyle; Z23 Encounter for immunization; Z79.52 Long term (current) use of systemic steroids
CPT/HCPCS: 36415; 70551; 72080; 80053; 80156; 80164; 80177; 80184; 80185; 82550; 83036; 83605; 83735; 85025; 85610; 86703; 86803; 90686; 95813; 95819; A9270-GY; G0378; J1644

== ENCOUNTER 2016-11-07 13:55 | Emergency (ER) | payer MEDICAID ==
[2016-11-07] MEDS: NS 0.9% 1000 ML* 2,000 ML IV ONE ×2 (15:25→16:07)
[2016-11-07 15:39] LABS: Hematocrit 47 % (42-52); Hemoglobin 15.3 g/dl (14.0-18.0); Mean Corpuscular HGB Conc 33 g/dl (31-36); Mean Corpuscular Hemoglobin 29 pg (27-31); Mean Corpuscular Volume 87 fL (80-94); Mean Platelet Volume 8 um3 (7.4-10.4); Red Blood Count 5.34 10^6/ul (4.0-5.4); Red Cell Distribution Width 15 % (10.5-15); White Blood Count 5.4 10^3/ul (3.5-10.8)
[2016-11-07 16:04] LABS: Urine Bacteria Absent (Absent); Urine Bilirubin Negative (Negative); Urine Glucose Negative (Negative); Urine Nitrite Negative (Negative)
[2016-11-07 16:08] LABS: ALT 12 U/L (7-52); AST 14 U/L (13-39); Albumin 3.8 g/dL (3.2-5.2); Alkaline Phosphatase 74 U/L (34-104); Anion Gap 5 mmol/L (2-11); BUN/Creatinine Ratio 11.9 (8-20); Blood Urea Nitrogen 16 mg/dL (6-24); CO2 Carbon Dioxide 30 mmol/L (22-32); Calcium 8.9 mg/dL (8.6-10.3); Chloride 101 mmol/L (101-111); Creatine Kinase 47 U/L (10-223); EGFR African American 74.1 (>60); EGFR Non-African American 57.6 (>60); Globulin 3.1 g/dL (2-4); Glucose 155 mg/dL (70-100); Sodium 136 mmol/L (133-145); Total Protein 6.9 g/dL (6.4-8.9)
[2016-11-07 16:14] LABS: Benzodiazepine Urine Screen None Detected (None Detect)
[2016-11-07 16:24] LABS: TSH (Thyroid Stimulating Horm) 1.08 mcIU/mL (0.34-5.60)
[2016-11-07 16:28] LABS: Acetaminophen < 15 mcg/mL; Alcohol < 10 mg/dL (<10); Phenytoin 13.4 mcg/mL (10-20); Salicylate < 2.50 mg/dL (<30)
--- NOTE | 2016-11-07 19:26 | ED ---
Dario Hoskins Billy, scribed for Graham Castañeda MD on 11/07/16 at 1516 . Neurological HPI - HPI Summary HPI Summary: Patient is a 46 year-old male coming to [facility] for evaluation of three consecutive, witnessed, generalized seizures at 1330 today. Each seizure lasted several minutes. Patient denies any tongue-biting or incontinence today. He complains of headache and diffuse aches, which are typical post-seizure symptoms for him. He states he took all of his prescribed medications today. Denies any recent EtOH. He was in the ICU yesterday and left AMA due to anxiety. Patient also reports auditory hallucinations, hearing voices. - History of Current Complaint Chief Complaint: EDSeizure Stated Complaint: SEIZURE Time Seen by Provider: 11/07/16 14:35 Hx Obtained From: Patient Onset/Duration: Sudden Onset Timing: Sudden Onset Seizure Severity: Moderate Number of Seizures: 3 Pain Intensity: 9 Pain Scale Used: 0-10 Numeric Seizure Character: Generalized Aggravating: Unknown Alleviating: Unknown Associated Signs and Symptoms: Positive: Headache - Additional Pertinent History Primary Care Physician: [id number] - Allergy/Home Medications Allergies/Adverse Reactions: Allergies Allergy/AdvReac Type Severity Reaction Status Date / Time Acetaminophen [From Tylenol] Allergy Vomiting Verified 10/02/16 19:33 Aspirin Allergy Vomiting Verified 10/02/16 19:33 Ibuprofen Allergy Vomiting Verified 10/02/16 19:33 Soy Allergy Allergy See Comment Verified 10/02/16 19:33 PMH/Surg Hx/FS Hx/Imm Hx Endocrine/Hematology History: Denies: Hx Diabetes Cardiovascular History: Denies: Hx Hypertension, Hx Pacemaker/ICD Respiratory History: Reports: Hx Chronic Obstructive Pulmonary Disease (COPD) Denies: Hx Asthma History: Denies: Hx Renal Disease Sensory History: Denies: Hx Contacts or Glasses, Hx Hearing Aid Opthamlomology History: Denies: Hx Contacts or Glasses Neurological History: Reports: Hx CVA, Hx Seizures, Other Neuro Impairments/ Disorders - Vertigo, Addisons Psychiatric History: Reports: Hx Panic Disorder - Surgical History Surgery Procedure, Year, and Place: DOUBLE HERNIA REPAIR; Infectious Disease History: No Infectious Disease History: Denies: Traveled Outside the [place] in Last 30 Days - Family History Known Family History: Positive: Cardiac Disease, Hypertension, Diabetes - Social History Alcohol Use: Rare Substance Use Type: Reports: Marijuana Substance Use Comment - Amount & Last Used: occasionally Smoking Status (MU): Former Smoker Review of Systems Positive: Myalgia Neurological: Other - seizure Positive: Headache Psychological: Other - hearing voices All Other Systems Reviewed And Are Negative: Yes Physical Exam - Summary Physical Exam Summary: The patient is well-nourished in no acute distress and in no acute pain. The skin is warm and dry and skin color reflects adequate perfusion. There is a fluctuant abscess to the right forearm. HEENT: The head is normocephalic and atraumatic. The pupils are equal and reactive. The conjunctivae are clear and without drainage. Nares are patent and without drainage. Mouth reveals moist mucous membranes and the throat is without erythema and exudate. The external ears are intact. The ear canals are patent and without drainage. The tympanic membranes are intact. Neck is supple with full range of motion and non-tender. There are no carotid bruits. There is no neck vein distension. Respiratory: Chest is non-tender. Lungs are clear to auscultation and breath sounds are symmetrical and equal. Cardiovascular: Hear is regular rate and rhythm. There is no murmur or rub auscultated. There is no peripheral edema and pulses are symmetrical and equal. Abdomen: The abdomen is soft and non-tender. There are normal bowel sounds heard in all four quadrants and there is no organomegaly palpated. Musculoskeletal: There is no back pain noted. Extremities are non-tender with full range of motion. There is good capillary refill. There is no peripheral edema or calf tenderness elicited. Neurological: Patient is alert and oriented to person, place and time. The patient has symmetrical motor strength in all four extremities. Psychiatric: Flat affect. Triage Information Reviewed: Yes Vital Signs On Initial Exam: Initial Vitals Pulse Resp Pulse Ox 84 14 94 11/07/16 14:13 11/07/16 14:13 11/07/16 14:13 Vital Signs Reviewed: Yes - [place] Coma Scale Coma Scale Total: 15 Diagnostics - Vital Signs Vital Signs Temp Pulse Resp BP Pulse Ox 11/07/16 15:00 81 16 109/57 95 11/07/16 14:56 98.7 F 80 16 115/61 98 11/07/16 14:51 90 18 115/61 97 11/07/16 14:13 84 14 94 - Laboratory Lab Results: Lab Results 11/07/16 11/07/1611/07/17 Range/Units 15:20 15:20 15:20 WBC 5.4 (3.5-10.8) 10^3/ul RBC 5.34 (4.0-5.4) 10^6/ul Hgb 15.3 (14.0-18.0) g/dl Hct 47 (42-52) % MCV 87 (80-94) fL MCH 29 (27-31) pg MCHC 33 (31-36) g/dl RDW 15 (10.5-15) % Plt Count 196 (150-450) 10^3/ul MPV 8 (7.4-10.4) um3 Neut % (Auto) 65.8 (38-83) % Lymph % (Auto) 24.5 L (25-47) % Eaton % (Auto) 8.6 (1-9) % Eos % (Auto) 0.4 (0-6) % Baso % (Auto) 0.7 (0-2) % Absolute Neuts (auto) 3.6 (1.5-7.7) 10^3/ul Absolute Lymphs (auto) 1.3 (1.0-4.8) 10^3/ul Absolute Monos (auto) 0.5 (0-0.8) 10^3/ul Absolute Eos (auto) 0 (0-0.6) 10^3/ul Absolute Basos (auto) 0 (0-0.2) 10^3/ul Absolute Nucleated RBC 0.01 10^3/ul Nucleated RBC % 0.1 INR (Anticoag Therapy) 0.97 (0.89-1.11) Sodium 136 (133-145) mmol/L Potassium 4.0 (3.5-5.0) mmol/L Chloride 101 (101-111) mmol/L Carbon Dioxide 30 (22-32) mmol/L Anion Gap 5 (2-11) mmol/L BUN 16 (6-24) mg/dL Creatinine 1.34 H (0.67-1.17) mg/dL Est GFR ( Amer) 74.1 (>60) Est GFR (Non-Af Amer) 57.6 (>60) BUN/Creatinine Ratio 11.9 (8-20) Glucose 155 H (70-100) mg/dL Lactic Acid (0.5-2.0) mmol/L Calcium 8.9 (8.6-10.3) mg/dL Magnesium 2.0 (1.9-2.7) mg/dL Total Bilirubin 0.40 (0.2-1.0) mg/dL AST 14 (13-39) U/L ALT 12 (7-52) U/L Alkaline Phosphatase 74 (34-104) U/L Total Creatine Kinase 47 (10-223) U/L Total Protein 6.9 (6.4-8.9) g/dL Albumin 3.8 (3.2-5.2) g/dL Globulin 3.1 (2-4) g/dL Albumin/Globulin Ratio 1.2 (1-3) TSH 1.08 (0.34-5.60) mcIU/mL Urine Color Urine Appearance Urine pH (5-9) Ur Specific Boone (1.010-1.030) Urine Protein (Negative) Urine Ketones (Negative) Urine Blood (Negative) Urine Nitrate (Negative) Urine Bilirubin (Negative) Urine Urobilinogen (Negative) Ur Leukocyte Esterase (Negative) Urine WBC (Auto) (Absent) Urine RBC (Auto) (Absent) Ur Squamous Epith Cells (Absent) Urine Bacteria (Absent) Urine Glucose (Negative) Salicylates < 2.50 (<30) mg/dL Urine Opiates Screen (None Detect) Acetaminophen < 15 mcg/mL Ur Barbiturates Screen (None Detect) Phenytoin 13.4 (10-20) mcg/mL Valproic Acid 98.0 (50-100) mcg/mL Ur Phencyclidine Scrn (None Detect) Ur Amphetamines Screen (None Detect) U Benzodiazepines Scrn (None Detect) Urine Cocaine Screen (None Detect) U Cannabinoids Screen (None Detect) Serum Alcohol < 10 (<10) mg/dL 11/07/16 11/07/16 11/07/16 Range/Units 15:20 15:32 15:32 WBC (3.5-10.8) 10^3/ul RBC (4.0-5.4) 10^6/ul Hgb (14.0-18.0) g/dl Hct (42-52) % MCV (80-94) fL MCH (27-31) pg MCHC (31-36) g/dl RDW (10.5-15) % Plt Count (150-450) 10^3/ul MPV (7.4-10.4) um3 Neut % (Auto) (38-83) % Lymph % (Auto) (25-47) % Eaton % (Auto) (1-9) % Eos % (Auto) (0-6) % Baso % (Auto) (0-2) % Absolute Neuts (auto) (1.5-7.7) 10^3/ul Absolute Lymphs (auto) (1.0-4.8) 10^3/ul Absolute Monos (auto) (0-0.8) 10^3/ul Absolute Eos (auto) (0-0.6) 10^3/ul Absolute Basos (auto) (0-0.2) 10^3/ul Absolute Nucleated RBC 10^3/ul Nucleated RBC % INR (Anticoag Therapy) (0.89-1.11) Sodium (133-145) mmol/L Potassium (3.5-5.0) mmol/L Chloride (101-111) mmol/L Carbon Dioxide (22-32) mmol/L Anion Gap (2-11) mmol/L BUN (6-24) mg/dL Creatinine (0.67-1.17) mg/dL Est GFR ( Amer) (>60) Est GFR (Non-Af Amer) (>60) BUN/Creatinine Ratio (8-20) Glucose (70-100) mg/dL Lactic Acid 1.7 (0.5-2.0) mmol/L Calcium (8.6-10.3) mg/dL Magnesium (1.9-2.7) mg/dL Total Bilirubin (0.2-1.0) mg/dL AST (13-39) U/L ALT (7-52) U/L Alkaline Phosphatase (34-104) U/L Total Creatine Kinase (10-223) U/L Total Protein (6.4-8.9) g/dL Albumin (3.2-5.2) g/dL Globulin (2-4) g/dL Albumin/Globulin Ratio (1-3) TSH (0.34-5.60) mcIU/mL Urine Color Yellow Urine Appearance Clear Urine pH 6.0 (5-9) Ur Specific Boone 1.021 (1.010-1.030) Urine Protein Negative (Negative) Urine Ketones Trace H (Negative) Urine Blood Negative (Negative) Urine Nitrate Negative (Negative) Urine Bilirubin Negative (Negative) Urine Urobilinogen Negative (Negative) Ur Leukocyte Esterase Trace H (Negative) Urine WBC (Auto) Trace(0-5/hpf) (Absent) Urine RBC (Auto) Absent (Absent) Ur Squamous Epith Cells Present H (Absent) Urine Bacteria Absent (Absent) Urine Glucose Negative (Negative) Salicylates (<30) mg/dL Urine Opiates Screen None detected (None Detect) Acetaminophen mcg/mL Ur Barbiturates Screen None detected (None Detect) Phenytoin (10-20) mcg/mL Valproic Acid (50-100) mcg/mL Ur Phencyclidine Scrn None detected (None Detect) Ur Amphetamines Screen None detected (None Detect) U Benzodiazepines Scrn None detected (None Detect) Urine Cocaine Screen None detected (None Detect) U Cannabinoids Screen None detected (None Detect) Serum Alcohol (<10) mg/dL Result Diagrams: 11/07/16 15:20 11/07/16 15:20 Lab Statement: Any lab studies that have been ordered have been reviewed, and results considered in the medical decision making process. - EKG 1416 EKG Interpretation: NSR 82 bpm, normal axis, nonspecific ST changes, no STEMI Course/Dx - Course Assessment/Plan: 46 year-old male coming to [facility] for evaluation of 3x seizures today. Patient was recently admitted to the ICU and left AMA secondary to anxiety. In the ED course, patient was hydrated with IV fluids, and labs were drawn. Lab results reviewed. Patient was medically clear for MHE at 1633. Patient was signed out at shift change pending MHE. pt was sent in by adult protective services secondary to depression and hallucinations and recommending a mental health evaluation. pt has history of pseudoseizures. - Differential Dx Differential Diagnoses Neuro: Positive: Seizure Disorder - Diagnoses Provider Diagnoses: depression, Pseudoseizure, Seizure, Hallucination - Physician Notifications Discussed Care of Patient With: Adult protective services @ 1545: patient needs to have a MHE as he is hearing voices. Discharge - Discharge Plan Condition: Stable Disposition: OTHER Discharge Disposition Comment: Signed out at shift change pending MHE. Referrals: Tapan Morales MD [Primary Care Provider] - The documentation as recorded by the scribe, Bishop,Nico accurately reflects the service I personally performed and the decisions made by me, Graham Castañeda MD.
[2016-11-07] MEDS ORDERED: oxyCODONE TAB* 5 MG TAB PO ONE (20:50)
[2016-11-07] MEDS ORDERED: DOXYcycline CAP(*) 100 MG PO ONE (21:09)
[2016-11-07 21:46] VITALS: BP 94/53
== END 2016-11-07 21:45 | disposition home or self-care (01) ==
LOC: ED 13:55
DX: F32.9 Major depressive disorder, single episode, unspecified (principal); F44.5 Conversion disorder with seizures or convulsions; R44.3 Hallucinations, unspecified; R51 Headache
CPT/HCPCS: 36415; 80053; 80164; 80177; 80185; 80307; 80320; 80329; 81003; 81015; 82550; 83605; 83735; 84443; 85025; 85610; 87086; 93005; 96360; 99283; A9270-GY; G0480

== ENCOUNTER 2016-11-08 10:01 | Emergency (ER) | payer MEDICAID ==
[2016-11-08] MEDS ORDERED: NS 0.9% 1000 ML* 1,000 ML IV ONE (10:58)
[2016-11-08 11:15] LABS: Hematocrit 43 % (42-52); Hemoglobin 14.2 g/dl (14.0-18.0); Mean Corpuscular HGB Conc 33 g/dl (31-36); Mean Corpuscular Hemoglobin 29 pg (27-31); Mean Corpuscular Volume 87 fL (80-94); Mean Platelet Volume 9 um3 (7.4-10.4); Red Blood Count 4.93 10^6/ul (4.0-5.4); Red Cell Distribution Width 15 % (10.5-15); White Blood Count 4.6 10^3/ul (3.5-10.8)
[2016-11-08 11:25] LABS: ALT 14 U/L (7-52); Albumin 3.8 g/dL (3.2-5.2); Alkaline Phosphatase 77 U/L (34-104); BUN/Creatinine Ratio 13.7 (8-20); Blood Urea Nitrogen 19 mg/dL (6-24); CO2 Carbon Dioxide 29 mmol/L (22-32); Calcium 8.9 mg/dL (8.6-10.3); Chloride 104 mmol/L (101-111); Creatine Kinase 75 U/L (10-223); EGFR African American 71.1 (>60); EGFR Non-African American 55.3 (>60); Glucose 110 mg/dL (70-100); Magnesium 1.8 mg/dL (1.9-2.7); Sodium 139 mmol/L (133-145); Total Protein 6.8 g/dL (6.4-8.9)
[2016-11-08 11:26] LABS: Alcohol < 10 mg/dL (<10); Phenytoin 15.2 mcg/mL (10-20)
[2016-11-08] MEDS ORDERED: LORazepam TAB(*) 1 MG PO ONE (11:53)
[2016-11-08 12:00] LABS: Urine Bacteria Absent (Absent); Urine Bilirubin Negative (Negative); Urine Glucose Negative (Negative); Urine Nitrite Negative (Negative)
[2016-11-08 12:03] LABS: Benzodiazepine Urine Screen Presumptive Positive (None Detect)
[2016-11-08 12:15] LABS: AST 22 U/L (13-39); Anion Gap 6 mmol/L (2-11); Potassium 3.9 mmol/L (3.5-5.0)
[2016-11-08] MEDS ORDERED: oxyCODONE TAB* 5 MG TAB PO ONE (15:24)
[2016-11-08 17:25] VITALS: BP 103/62
--- NOTE | 2016-11-08 20:10 | ED ---
Dario Hoskins Billy, scribed for Graham Castañeda MD on 11/08/16 at 1105 . Neurological HPI - HPI Summary HPI Summary: Patient is a 46 year-old male coming to [facility] for evaluation of two seizures today. He reports having had urinary incontinence today during one of the seizures. He denies any injury or trauma. Positive headache. Denies any recent EtOH or drug use. He reports taking his prescribed seizure medications today. - History of Current Complaint Chief Complaint: EDSeizure Stated Complaint: SEIZURE Time Seen by Provider: 11/08/16 10:56 Hx Obtained From: Patient Onset/Duration: Sudden Onset Timing: Sudden Onset Seizure Severity: Moderate Neurological Deficit Location: Generalized Seizure Character: Generalized Aggravating: Unknown Alleviating: Unknown Associated Signs and Symptoms: Positive: Headache, Incontinent Bladder/Bowel - Additional Pertinent History Primary Care Physician: [id number] - Allergy/Home Medications Allergies/Adverse Reactions: Allergies Allergy/AdvReac Type Severity Reaction Status Date / Time Acetaminophen [From Tylenol] Allergy Vomiting Verified 11/08/16 14:02 Aspirin Allergy Vomiting Verified 11/08/16 14:02 Ibuprofen Allergy Vomiting Verified 11/08/16 14:02 Soy Allergy Allergy See Comment Verified 11/08/16 14:02 PMH/Surg Hx/FS Hx/Imm Hx Endocrine/Hematology History: Denies: Hx Diabetes Cardiovascular History: Denies: Hx Hypertension, Hx Pacemaker/ICD Respiratory History: Reports: Hx Chronic Obstructive Pulmonary Disease (COPD) Denies: Hx Asthma History: Denies: Hx Renal Disease Sensory History: Denies: Hx Contacts or Glasses, Hx Hearing Aid Opthamlomology History: Denies: Hx Contacts or Glasses Neurological History: Reports: Hx CVA, Hx Seizures, Other Neuro Impairments/ Disorders - Vertigo, Addisons Psychiatric History: Reports: Hx Panic Disorder, Hx of Violent Episodes Against Others Denies: Hx Eating Disorder - Surgical History Surgery Procedure, Year, and Place: DOUBLE HERNIA REPAIR; Infectious Disease History: No Infectious Disease History: Denies: Traveled Outside the [place] in Last 30 Days - Family History Known Family History: Positive: Cardiac Disease, Hypertension, Diabetes - Social History Alcohol Use: Occasionally Substance Use Type: Reports: None Substance Use Comment - Amount & Last Used: occasionally Smoking Status (MU): Former Smoker Review of Systems Negative: Fever Positive: incontinence Positive: Headache, Syncope All Other Systems Reviewed And Are Negative: Yes Physical Exam - Summary Physical Exam Summary: The patient is well-nourished in no acute distress and in no acute pain. The skin is warm and dry and skin color reflects adequate perfusion. HEENT: The head is normocephalic and atraumatic. No smalls's or racoon signs. The pupils are equal and reactive. EOMI. The conjunctivae are clear and without drainage. Nares are patent and without drainage. Mouth reveals moist mucous membranes and the throat is without erythema and exudate. The external ears are intact. The ear canals are patent and without drainage. The tympanic membranes are intact. Neck is supple with full range of motion and non-tender. There are no carotid bruits. There is no neck vein distension. Respiratory: Chest is non-tender. Lungs are clear to auscultation and breath sounds are symmetrical and equal. Cardiovascular: Heart is regular rate and rhythm. There is no murmur or rub auscultated. There is no peripheral edema and pulses are symmetrical and equal. Abdomen: The abdomen is soft and non-tender. There are normal bowel sounds heard in all four quadrants and there is no organomegaly palpated. Musculoskeletal: There is no back pain noted. Extremities are non-tender with full range of motion. There is good capillary refill. There is no peripheral edema or calf tenderness elicited. Neurological: Patient is alert and oriented to person, place and time. The patient has symmetrical motor strength in all four extremities. Cranial nerves are grossly intact. Deep tendon reflexes are symmetrical and equal in all four extremities. Psychiatric: The patient has a flat affect. Triage Information Reviewed: Yes Vital Signs On Initial Exam: Initial Vitals Temp Pulse Resp BP Pulse Ox 99.2 F 94 18 127/87 96 11/08/16 10:06 11/08/16 10:06 11/08/16 10:06 11/08/16 10:06 11/08/16 10:06 Vital Signs Reviewed: Yes - Albia Coma Scale Coma Scale Total: 14 Diagnostics - Vital Signs Vital Signs Temp Pulse Resp BP Pulse Ox 11/08/16 10:06 99.2 F 94 18 127/87 96 - Laboratory Lab Results: Lab Results 11/08/16 11/08/16 11/08/16 Range/Units 10:19 10:19 10:19 WBC 4.6 (3.5-10.8) 10^3/ul RBC 4.93 (4.0-5.4) 10^6/ul Hgb 14.2 (14.0-18.0) g/dl Hct 43 (42-52) % MCV 87 (80-94) fL MCH 29 (27-31) pg MCHC 33 (31-36) g/dl RDW 15 (10.5-15) % Plt Count 187 (150-450) 10^3/ul MPV 9 (7.4-10.4) um3 Neut % (Auto) 62.0 (38-83) % Lymph % (Auto) 27.1 (25-47) % Donley % (Auto) 9.8 H (1-9) % Eos % (Auto) 0.7 (0-6) % Baso % (Auto) 0.4 (0-2) % Absolute Neuts (auto) 2.8 (1.5-7.7) 10^3/ul Absolute Lymphs (auto) 1.2 (1.0-4.8) 10^3/ul Absolute Monos (auto) 0.4 (0-0.8) 10^3/ul Absolute Eos (auto) 0 (0-0.6) 10^3/ul Absolute Basos (auto) 0 (0-0.2) 10^3/ul Absolute Nucleated RBC 0 10^3/ul Nucleated RBC % 0.1 INR (Anticoag Therapy) 0.89 (0.89-1.11) Sodium 139 (133-145) mmol/L Potassium 3.9 (3.5-5.0) mmol/L Chloride 104 (101-111) mmol/L Carbon Dioxide 29 (22-32) mmol/L Anion Gap 6 (2-11) mmol/L BUN 19 (6-24) mg/dL Creatinine 1.39 H (0.67-1.17) mg/dL Est GFR ( Amer) 71.1 (>60) Est GFR (Non-Af Amer) 55.3 (>60) BUN/Creatinine Ratio 13.7 (8-20) Glucose 110 H (70-100) mg/dL Lactic Acid (0.5-2.0) mmol/L Calcium 8.9 (8.6-10.3) mg/dL Magnesium 1.8 L (1.9-2.7) mg/dL Total Bilirubin 0.20 (0.2-1.0) mg/dL AST 22 (13-39) U/L ALT 14 (7-52) U/L Alkaline Phosphatase 77 (34-104) U/L Total Creatine Kinase 75 (10-223) U/L Total Protein 6.8 (6.4-8.9) g/dL Albumin 3.8 (3.2-5.2) g/dL Globulin 3.0 (2-4) g/dL Albumin/Globulin Ratio 1.3 (1-3) Urine Color Urine Appearance Urine pH (5-9) Ur Specific [place] (1.010-1.030) Urine Protein (Negative) Urine Ketones (Negative) Urine Blood (Negative) Urine Nitrate (Negative) Urine Bilirubin (Negative) Urine Urobilinogen (Negative) Ur Leukocyte Esterase (Negative) Urine WBC (Auto) (Absent) Urine RBC (Auto) (Absent) Ur Squamous Epith Cells (Absent) Urine Bacteria (Absent) Urine Glucose (Negative) Urine Opiates Screen (None Detect) Ur Barbiturates Screen (None Detect) Phenytoin 15.2 (10-20) mcg/mL Ur Phencyclidine Scrn (None Detect) Ur Amphetamines Screen (None Detect) U Benzodiazepines Scrn (None Detect) Urine Cocaine Screen (None Detect) U Cannabinoids Screen (None Detect) Serum Alcohol < 10 (<10) mg/dL 11/08/16 11/08/16 11/08/16 Range/Units 10:19 11:28 11:28 WBC (3.5-10.8) 10^3/ul RBC (4.0-5.4) 10^6/ul Hgb (14.0-18.0) g/dl Hct (42-52) % MCV (80-94) fL MCH (27-31) pg MCHC (31-36) g/dl RDW (10.5-15) % Plt Count (150-450) 10^3/ul MPV (7.4-10.4) um3 Neut % (Auto) (38-83) % Lymph % (Auto) (25-47) % Donley % (Auto) (1-9) % Eos % (Auto) (0-6) % Baso % (Auto) (0-2) % Absolute Neuts (auto) (1.5-7.7) 10^3/ul Absolute Lymphs (auto) (1.0-4.8) 10^3/ul Absolute Monos (auto) (0-0.8) 10^3/ul Absolute Eos (auto) (0-0.6) 10^3/ul Absolute Basos (auto) (0-0.2) 10^3/ul Absolute Nucleated RBC 10^3/ul Nucleated RBC % INR (Anticoag Therapy) (0.89-1.11) Sodium (133-145) mmol/L Potassium (3.5-5.0) mmol/L Chloride (101-111) mmol/L Carbon Dioxide (22-32) mmol/L Anion Gap (2-11) mmol/L BUN (6-24) mg/dL Creatinine (0.67-1.17) mg/dL Est GFR ( Amer) (>60) Est GFR (Non-Af Amer) (>60) BUN/Creatinine Ratio (8-20) Glucose (70-100) mg/dL Lactic Acid 1.3 (0.5-2.0) mmol/L Calcium (8.6-10.3) mg/dL Magnesium (1.9-2.7) mg/dL Total Bilirubin (0.2-1.0) mg/dL AST (13-39) U/L ALT (7-52) U/L Alkaline Phosphatase (34-104) U/L Total Creatine Kinase (10-223) U/L Total Protein (6.4-8.9) g/dL Albumin (3.2-5.2) g/dL Globulin (2-4) g/dL Albumin/Globulin Ratio (1-3) Urine Color Straw Urine Appearance Clear Urine pH 7.0 (5-9) Ur Specific [place] 1.013 (1.010-1.030) Urine Protein Negative (Negative) Urine Ketones Negative (Negative) Urine Blood 1+ H (Negative) Urine Nitrate Negative (Negative) Urine Bilirubin Negative (Negative) Urine Urobilinogen Negative (Negative) Ur Leukocyte Esterase Negative (Negative) Urine WBC (Auto) Absent (Absent) Urine RBC (Auto) Trace(0-2/hpf) (Absent) Ur Squamous Epith Cells Present H (Absent) Urine Bacteria Absent (Absent) Urine Glucose Negative (Negative) Urine Opiates Screen None detected (None Detect) Ur Barbiturates Screen None detected (None Detect) Phenytoin (10-20) mcg/mL Ur Phencyclidine Scrn None detected (None Detect) Ur Amphetamines Screen None detected (None Detect) U Benzodiazepines Scrn Presumptive positive H (None Detect) Urine Cocaine Screen None detected (None Detect) U Cannabinoids Screen None detected (None Detect) Serum Alcohol (<10) mg/dL Result Diagrams: 11/08/16 10:19 11/08/16 10:19 Lab Statement: Any lab studies that have been ordered have been reviewed, and results considered in the medical decision making process. Course/Dx - Course Assessment/Plan: 46 year-old male to the ED with a complaint of seizures today. He has had multiple seizures in the past few days and has been seen in the ED several times, as well. In the ED course, patient was given Ativan and hydrated with IV fluids. Patient care was discussed with nephrology social worker Lolita Brewer. We then spoke with Ebony Zhu and Johnny from [facility]. Ultimately, the patient was admitted to hospitalist services. However, as the nurse was reviewing the plan for admission, the patient had torn out his own IV and wanted to be discharged. At this time, hospitalist is having him sign out AMA. - Diagnoses Provider Diagnoses: Seizure disorder, History of pseudoseizure - Physician Notifications Discussed Care of Patient With: Dr. Ferrari (hospitalist) @ 1200: accepts admission. Ebony Zhu NP @ 1311: will discuss with Dr. Duran, psychiatry. Ebony Zhu NP @ 1318: Dr. Duran requested [facility], disposition pending. Johnny ([facility] ) @ 1836: Dr. Duran will not be admitting the patient to his services. Ebony Zhu NP @ 1838: accepted admission. Discharge - Discharge Plan Condition: Stable Disposition: ADMITTED TO [facility] documentation as recorded by the Dario weiss Billy accurately reflects the service I personally performed and the decisions made by , Graham Castañeda MD.
[2016-11-08] MEDS ORDERED: levETIRAcetam TAB* 500 MG PO SCH (21:00)
[2016-11-08] MEDS ORDERED: Divalproex ER TAB(*) 500 MG PO SCH (21:00)
[2016-11-08] MEDS ORDERED: Heparin VIAL(*) 5000 UNITS/ML VIAL (FIVE THOUSAND) SUBCUT SCH (22:00)
--- NOTE | 2016-11-09 00:45 | HP ---
HOSPITAL MEDICINE HISTORY AND PHYSICAL: DATE OF ADMISSION: 11/08/16 - EMERGENCY DEPT PRIMARY CARE PHYSICIAN: Dr. Morales. ATTENDING PHYSICIAN: Dr. Radha Fink * (dictated provided by Ebony Zhu NP) . CHIEF COMPLAINT: Seizure-like activity. HISTORY OF PRESENT ILLNESS: Mr. 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 Mr. Zhu originally presented to our hospital on 11/04/16 out of concern for seizures. During that admission, he had 2 EEGs, one on 11/05/16 and one on , both of which failed to show any epileptiform discharges despite him showing typical seizure-like activity. The patient left against medical advice on 11/06/16. I will also note that we obtained records from [facility] that confirmed that the patient had been monitored via video EEG for 3 days and noted to NOT have epileptiform discharges there as well despite having typical seizure- like activity. Mr. Zhu was again left against medical advice on 11/06/16. He returned to the emergency room on 11/07/16 complaining of seizure. He was evaluated by mental health services for evaluation of pseudoseizures and concern the patient had reported hearing voices during the last hospitalization. They determined that there was was need inpatient hospitalization on the Behavioral Health Unit. The patient returned to the ED today, 11/08/16, with complaint of seizures being accompanied by adult protective services. They were quite concerned about his safety in the outpatient setting due to their concern that he is having seizures. Mr. Zhu has no other complaints. In the emergency room, he had labs, which are unremarkable. His toxicology screen is only positive for benzodiazepines. PAST MEDICAL HISTORY: 1. Reported seizure disorder since ; however, multiple investigations determine that these are likely pseudoseizures including 3-day video monitoring at [facility] in [place] as well as 2 EEGs during his last hospitalization. 2. El Dorado's disease. 3. PTSD. 4. Asthma. MEDICATIONS OUTPATIENT: The patient continues to report being on: 1. Levetiracetam 500 mg p.o. b.i.d. 2. Divalproex 1500 mg p.o. b.i.d. 3. Florinef 0.2 mg p.o. daily. 4. Phenytoin 400 mg p.o. q.a.m. ALLERGIES: TYLENOL, ASPIRIN, IBUPROFEN, SOY FAMILY HISTORY: The patient reports his mother had drug and alcohol abuse and he does not know any other significant history. SOCIAL HISTORY: The patient reported that he smoked marijuana occasionally and drinks alcohol occasionally. He states his healthcare proxy is his partner, Erin. REVIEW OF SYSTEMS: A 14-point review of systems was completed with Mr. Zhu and all those not mentioned above were negative. PHYSICAL EXAMINATION GENERAL: Mr. Zhu is lying in the bed. He is in no acute distress. He is calm and cooperative with my examination. VITAL SIGNS: Temperature 99.2, heart rate 101, respiratory rate 17, O2 saturation 96% on room air, blood pressure 103/62. LUNGS: Clear to auscultation bilaterally with no accessory muscle use and good aeration. HEART: S1, S2. No murmur, rub, or gallop, and regular. ABDOMEN: Soft and nontender with bowel sounds x4. EXTREMITIES: No cyanosis or edema. NEUROLOGIC: He is alert. He is oriented x3. He moves all extremities equally. There is no facial asymmetry or focal weakness. Extraocular movements are intact. SKIN: Intact. DIAGNOSTIC STUDIES/LAB DATA: WBC 4.6, hemoglobin 14.2, hematocrit 43, platelet count 187. INR 0.89. Sodium 139, potassium 3.9, chloride 104, serum bicarbonate 29, BUN 19, creatinine 1.39, glucose 110, lactic acid 1.3, magnesium 1.8. Urine shows no evidence of infection. Tox screen shows phenytoin level 15.2, serum alcohol level less than 10 and presumptive positive benzodiazepine. ASSESSMENT: Mr. 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 My plan is to observe in the hospital overnight for the followin. Question of seizures. The patient did have a repeat EEG in the emergency room today and the report of that is pending. We will continue to monitor him but based on the report of multiple EEGs without epileptiform discharges despite presence of seizure-like symptoms, I am highly suspicious that the patient only has pseudoseizures. Plan for Neurology consultation tomorrow to guide us in the discontinuation of his multiple seizure medications. 2. History of post traumatic stress disorder. Plan to consult Psychiatry tomorrow regarding management of the patient's symptoms including pseudoseizures. I would like to discontinue all his seizure medication, but I would like to have Psychiatry provide recommendations on this as some of these agents can also be used as psychiatric medications. 3. DVT prophylaxis, heparin subcu. 4. Disposition to medical floor. TIME SPENT: Approximately 60 minutes were spent on the admission of this patient, more than half the time spent with the patient at the bedside reviewing the events leading up to this hospitalization, performing the physical examination, and reviewing [place] [id number]/[facility] #: [id number] SAMARA
[2016-11-09] MEDS ORDERED: Phenytoin CAP(*) 100 MG CAP.ER PO SCH (09:00)
[2016-11-09] MEDS ORDERED: Fludrocortisone Acetate TAB* 0.1 MG PO SCH (09:00)
--- NOTE | 2016-11-09 19:34 | EEG ---
ELECTROENCEPHALOGRAPHY: DATE OF STUDY: 11/08/16 REQUESTING PROVIDER: Ebony Zhu NP. CLINICAL PROBLEM: The patient is a 46-year-old male with history of nonepileptic seizure confirmed via video EEG monitoring on 11/06/16 who returned to the hospital after he signed out AMA during the previous admission with more seizures. REPORT: This digital EEG was recorded using 21 scalp and ear, and 2 EKG electrodes. It was reviewed in referential and bipolar montages following reformatting in the 10-20 international electrode placement system. In the most awake state, the background consists of 20-30 microvolts, 8.5-9.5 Hz posterior dominant rhythm. Faster frequencies including 5-10 microvolts, 14- 22 Hz activities seen in the frontal leads. During drowsiness, there was increased emergence of theta and beta rhythms and during sleep, symmetric sleep spindles and vertex sharp transients were seen. During the recording there were some jerky movements in the left leg that were not associated with any change in the background EEG recording. IMPRESSION: This digital EEG in the awake and sleep state is within range of normal variation. No epileptiform discharges or seizures were seen with the patient jerky movements of the left leg. [id number]/[facility] #: [id number] [facility]
--- NOTE | 2016-11-09 19:51 | DS ---
DISCHARGE SUMMARY: DATE OF ADMISSION: 11/08/16 DATE OF DISCHARGE: Against medical advice, 11/08/16. SUPERVISING PHYSICIAN: Janeth Black DO *(dictated by Ebony Zhu NP) PRIMARY DIAGNOSIS: Pseudoseizures. MEDICATIONS: 1. Fludrocortisone 0.4 mg p.o. daily. 2. Phenytoin 400 mg p.o. q.a.m. 3. Levetiracetam 500 mg p.o. b.i.d. 4. Divalproex 1500 mg p.o. b.i.d. HOSPITAL COURSE: Mr. Zhu is a 46-year-old male with past medical history of suspected seizures, though found to actually have pseudoseizures, who presented to the hospital on 11/08/16 with complaint of continued seizures. Please see the dictated H and P for myself for full details. In brief, our intention was to admit Mr. Zhu to the hospital for discontinuation of his multiple antiseizure medications under the direction of Neurology and Psychiatry as well as consideration of initiation of medication for treatment of depression, anxiety, and PTSD. Mr. Zhu did not want to stay in the hospital. I have counseled him at length regarding the fact that his seizures are much more likely pseudoseizures than related to epilepsy. He states the understanding of such as does his partner who is at the bedside. They actually state that they have noted that when he is off his seizure medications, he does much better and noted dramatic increase in his seizures now that he had resumed the divalproex, phenytoin, and Keppra. I have suggested to Mr. Zhu that his pseudoseizures would likely be much more amenable to treatment with therapy. He has a therapist in the community and has support from APS services. I have I told him that I think it is safer for him to stay in the hospital for these consultations and to have these medications adjusted under observation, but he prefers leaving against medical advice and has capacity to do so. This has also all been reviewed with his partner and she agrees with his decision and understands the risk and benefits as listed on the AMA paperwork completed today. Mr. Zhu is competent to sign out AMA today. DISPOSITION: Home. FOLLOWUP: Mr. Zhu is recommended to follow up with Dr. Rosalinda Healy regarding continued management of his seizure disorder that is suspected to be pseudoseizure in origin for adjustment of his medications. TIME SPENT: Approximately 30 minutes were spent in the discharge of this patient, more than half the time spent with the patient at the bedside reviewing the events leading up to his brief hospitalization, performing the physical examination, and reviewing the [place] [id number]/[facility] #: [id number] [facility]
== END 2016-11-08 20:32 | disposition left against medical advice (07) ==
LOC: ED 10:01 → UNDOADMOB 18:55 → MED 18:55
DX: G40.909 Epilepsy, unspecified, not intractable, without status epilepticus (principal); R51 Headache; R55 Syncope and collapse; Z87.891 Personal history of nicotine dependence
CPT/HCPCS: 36415; 80053; 80177; 80185; 80307; 80320; 81003; 82550; 83605; 83735; 85025; 85610; 95819; 99285; A9270-GY; G0480

== ENCOUNTER 2016-12-03 10:06 | Emergency (ER) | payer MEDICAID ==
[2016-12-03] MEDS ORDERED: Sulfamethox/Trimethoprim SS 400/80* TAB PO ONE (11:36)
--- NOTE | 2016-12-03 12:18 | ED ---
Skin Complaint - HPI Summary HPI Summary: 46M presents with lumps under arm for a week. He states he a lesion on his right forearm that was improving with doxcycline. He has noticed dry skin on his scalp. He denies any fever. He states the lumps under his arms have been multiplying and have become very painful. He also admits to sinusitis for a month which he was also taking the doxcycline for. He states that he has a history of chronic sinusitis. He denies any headache or sore throat but admits to sinus congestion. - History of Current Complaint Chief Complaint: EDGeneral Time Seen by Provider: 12/03/16 11:13 Stated Complaint: SINUS COMPLAINT/BUMPS ON ARMPITS Pain Intensity: 10 - Additional Pertinent History Primary Care Physician: [id number] - Allergy/Home Medications Allergies/Adverse Reactions: Allergies Allergy/AdvReac Type Severity Reaction Status Date / Time Acetaminophen [From Tylenol] Allergy Vomiting Verified 11/08/16 14:02 Aspirin Allergy Vomiting Verified 11/08/16 14:02 Ibuprofen Allergy Vomiting Verified 11/08/16 14:02 Soy Allergy Allergy See Comment Verified 11/08/16 14:02 PMH/Surg Hx/FS Hx/Imm Hx Endocrine/Hematology History: Denies: Hx Diabetes Cardiovascular History: Denies: Hx Hypertension, Hx Pacemaker/ICD Respiratory History: Reports: Hx Chronic Obstructive Pulmonary Disease (COPD) Denies: Hx Asthma History: Denies: Hx Renal Disease Sensory History: Denies: Hx Contacts or Glasses, Hx Hearing Aid Opthamlomology History: Denies: Hx Contacts or Glasses Neurological History: Reports: Hx CVA, Hx Seizures, Other Neuro Impairments/ Disorders - Vertigo, Addisons Psychiatric History: Reports: Hx Panic Disorder, Hx of Violent Episodes Against Others Denies: Hx Eating Disorder - Surgical History Surgery Procedure, Year, and Place: DOUBLE HERNIA REPAIR; Infectious Disease History: No Infectious Disease History: Denies: Traveled Outside the [place] in Last 30 Days - Family History Known Family History: Positive: Cardiac Disease, Hypertension, Diabetes - Social History Alcohol Use: Occasionally Substance Use Type: Reports: None Substance Use Comment - Amount & Last Used: occasionally Smoking Status (MU): Never Smoked Tobacco Review of Systems Negative: Fever Positive: Nasal Discharge, Other - sinus pressure. Negative: Sore Throat Negative: Chest Pain Negative: Shortness Of Breath Positive: Other - lesions in armpits All Other Systems Reviewed And Are Negative: Yes Physical Exam Triage Information Reviewed: Yes Vital Signs On Initial Exam: Initial Vitals Temp Pulse Resp BP Pulse Ox 97.0 F 76 20 123/76 100 12/03/16 10:09 12/03/16 10:09 12/03/16 10:09 12/03/16 10:09 12/03/16 10:09 Vital Signs Reviewed: Yes Appearance: Positive: Well-Appearing Skin: Positive: Other - follicular lesions present in bilateral armpits Head/Face: Positive: Normal Head/Face Inspection Eyes: Positive: Normal, EOMI, MANUELA, Conjunctiva Clear ENT: Positive: Pharynx normal, Nasal congestion, TMs normal, Other - sinus tenderness present with palpation Respiratory/Lung Sounds: Positive: Clear to Auscultation, Breath Sounds Present Cardiovascular: Positive: Normal, RRR Diagnostics - Vital Signs Vital Signs Temp Pulse Resp BP Pulse Ox 12/03/16 11:17 98.5 F 78 14 126/76 99 12/03/16 10:09 97.0 F 76 20 123/76 100 - Laboratory Lab Statement: Any lab studies that have been ordered have been reviewed, and results considered in the medical decision making process. Course/Dx - Course Course Of Treatment: 46M presents with lesion in his armpits. He states he has notice more of them over the past couple days. on exam he has follicular lesions in his armpit. He has been on doxcycline for sinusitis but has not been getting better. on exam has sinus tenderness. Will change to bactrim as will cover for folliculitis and sinusitis. will also add flonase for nasal discharge. patient understands and agrees with plan - Differential Diagnoses - Skin Complaint Differential Diagnoses: Abscess, Cellulitis, Other - folliculitis - Diagnoses Provider Diagnoses: Folliculitis, Sinusitis Discharge - Discharge Plan Condition: Good Disposition: HOME Prescriptions: Fluticasone NASAL SPRAY 50MCG* [Flonase NASAL SPRAY 50MCG*] 2 spray BOTH NARES DAILY #1 btl Sulfamethox/Trimethoprim DS* [Bactrim DS 800/160 TAB*] 1 tab PO BID #19 tab Patient Education Materials: Folliculitis (ED) Referrals: Tapan Morales MD [Primary Care Provider] - Additional Instructions: Take bactrim twice a day for 10 days for folliculitis and sinusitis Take flonase one spray each nostril twice a day Place warm compresses on area Take Tylenol or ibuprofen every 6 hours for pain Return to ED if develop fever, or any new or worsening symptoms
[2016-12-03] MEDS ORDERED: Sulfamethox/Trimethoprim DS 800/160* TAB ONE (12:26)
[2016-12-03] MEDS ORDERED: Sulfamethox/Trimethoprim DS 800/160* TAB PO ONE (12:29)
[2016-12-03 13:39] VITALS: BP 138/78
== END 2016-12-03 13:39 | disposition home or self-care (01) ==
LOC: ED 10:06
DX: L73.9 Follicular disorder, unspecified (principal); J32.9 Chronic sinusitis, unspecified
CPT/HCPCS: 99282; A9270-GY

== ENCOUNTER 2016-12-11 14:53 | Emergency (ER) | payer MEDICAID ==
[2016-12-11 16:09] LABS: Urine Bacteria Absent (Absent); Urine Bilirubin Negative (Negative); Urine Glucose Negative (Negative); Urine Nitrite Negative (Negative)
[2016-12-11 16:17] LABS: Hematocrit 41 % (42-52); Hemoglobin 13.4 g/dl (14.0-18.0); Mean Corpuscular HGB Conc 33 g/dl (31-36); Mean Corpuscular Hemoglobin 28 pg (27-31); Mean Corpuscular Volume 86 fL (80-94); Mean Platelet Volume 8 um3 (7.4-10.4); Red Blood Count 4.75 10^6/ul (4.0-5.4); Red Cell Distribution Width 15 % (10.5-15); White Blood Count 6.9 10^3/ul (3.5-10.8)
[2016-12-11 16:32] LABS: Albumin 3.7 g/dL (3.2-5.2); BUN/Creatinine Ratio 13.7 (8-20); Calcium 8.9 mg/dL (8.6-10.3); EGFR African American 81.1 (>60); Globulin 3.4 g/dL (2-4); Magnesium 1.8 mg/dL (1.9-2.7); Potassium 3.7 mmol/L (3.5-5.0); Total Bilirubin 0.4 mg/dL (0.2-1.0); Total Protein 7.1 g/dL (6.4-8.9)
[2016-12-11 16:37] LABS: Phenytoin 3.3 mcg/mL (10-20)
[2016-12-11 18:27] VITALS: BP 126/77
--- NOTE | 2016-12-11 22:43 | ED ---
Keke Hoskins Erika, scribed for Robb Royal MD on 12/11/16 at 1730 . Neurological HPI - HPI Summary HPI Summary: Patient is a 46-year-old male presenting to the ED with a CC of possible seizures. Patient's [id number] witnessed these episodes, and states that patient had multiple episodes where he would slump towards one side and shake. In between episodes, patient would sit up and look around, and then go into another episode. She reports episodes lasted a total of 10-15 minutes. Patient reports that he was admitted to the hospital a few weeks ago and was taken off all of his medications, but he has since restarted them - these are 500 mg Keppra 2x/day, 400 Dilantin 1x/day, and 1500 mg Depakote 2x/day. Currently, patient notes a headache. Patient reports he has been having diarrhea for the past few days, and reports he was on Abx for C. diff recently. Hx vertigo, migraines. Patient is followed by Dr. Morales and Dr. Healy. - History of Current Complaint Chief Complaint: EDSeizure Stated Complaint: SEIZURES Time Seen by Provider: 12/11/16 15:05 Hx Obtained From: Patient, Family/Amf Mechanic - [id number] Onset/Duration: Sudden Onset, Started minutes ago, Resolved Timing: Intermittent Episodes Lasting: - seconds, total lasting 10-15 minutes Onset Severity: Moderate Current Severity: None Pain Intensity: 10 Pain Scale Used: 0-10 Numeric Alleviating: Spontanious Resolution - spontaneous Associated Signs and Symptoms: Positive: Headache - Additional Pertinent History Primary Care Physician: [id number] - Allergy/Home Medications Allergies/Adverse Reactions: Allergies Allergy/AdvReac Type Severity Reaction Status Date / Time Acetaminophen [From Tylenol] Allergy Vomiting Verified 11/08/16 14:02 Aspirin Allergy Vomiting Verified 11/08/16 14:02 Ibuprofen Allergy Vomiting Verified 11/08/16 14:02 Soy Allergy Allergy See Comment Verified 11/08/16 14:02 PMH/Surg Hx/FS Hx/Imm Hx Endocrine/Hematology History: Denies: Hx Diabetes Cardiovascular History: Denies: Hx Hypertension, Hx Pacemaker/ICD Respiratory History: Reports: Hx Chronic Obstructive Pulmonary Disease (COPD) Denies: Hx Asthma History: Denies: Hx Renal Disease Sensory History: Denies: Hx Contacts or Glasses, Hx Hearing Aid Opthamlomology History: Denies: Hx Contacts or Glasses Neurological History: Reports: Hx Migraine, Hx Seizures, Other Neuro Impairments /Disorders - Vertigo Psychiatric History: Reports: Hx Panic Disorder, Hx of Violent Episodes Against Others Denies: Hx Eating Disorder - Surgical History Surgery Procedure, Year, and Place: DOUBLE HERNIA REPAIR; Infectious Disease History: No Infectious Disease History: Denies: Traveled Outside the [place] in Last 30 Days - Family History Known Family History: Positive: Cardiac Disease, Hypertension, Diabetes - Social History Occupation: Unemployed Lives: With Family Alcohol Use: Occasionally Hx Substance Use: No Substance Use Type: Reports: None Substance Use Comment - Amount & Last Used: occasionally Review of Systems Positive: Diarrhea Neurological: Other - seizure-like activity Positive: Headache All Other Systems Reviewed And Are Negative: Yes Physical Exam Triage Information Reviewed: Yes Vital Signs On Initial Exam: Initial Vitals Temp Pulse Resp BP 97.3 F 82 20 121/80 12/11/16 14:57 12/11/16 14:57 12/11/16 14:57 12/11/16 14:57 Vital Signs Reviewed: Yes Appearance: Positive: Well-Appearing, No Pain Distress Skin: Positive: Warm, Skin Color Reflects Adequate Perfusion, Dry Head/Face: Positive: Normal Head/Face Inspection Eyes: Positive: Normal ENT: Positive: Normal ENT inspection, Other - No evidence of tongue-biting Neck: Positive: Supple, Nontender Respiratory/Lung Sounds: Positive: Clear to Auscultation, Breath Sounds Present Cardiovascular: Positive: RRR Abdomen Description: Positive: Soft, Other: - Diffusely tender Bowel Sounds: Positive: Present Musculoskeletal: Positive: Normal Neurological: Positive: Normal, Sensory/Motor Intact, Alert, Oriented to Person Place, Time, CN Intact II-III, Other - Patient does not appear post-ictal Psychiatric: Positive: Affect/Mood Appropriate Diagnostics - Vital Signs Vital Signs Temp Pulse Resp BP Pulse Ox 12/11/16 15:00 97.3 F 82 14 121/80 97 12/11/16 14:57 97.3 F 82 20 121/80 - Laboratory Lab Results: Lab Results 12/11/16 12/11/16 12/11/16 Range/Units 15:52 15:52 15:52 WBC 6.9 (3.5-10.8) 10^3/ul RBC 4.75 (4.0-5.4) 10^6/ul Hgb 13.4 L (14.0-18.0) g/dl Hct 41 L (42-52) % MCV 86 (80-94) fL MCH 28 (27-31) pg MCHC 33 (31-36) g/dl RDW 15 (10.5-15) % Plt Count 229 (150-450) 10^3/ul MPV 8 (7.4-10.4) um3 Neut % (Auto) 74.7 (38-83) % Lymph % (Auto) 18.2 L (25-47) % Coal % (Auto) 5.9 (1-9) % Eos % (Auto) 0.7 (0-6) % Baso % (Auto) 0.5 (0-2) % Absolute Neuts (auto) 5.2 (1.5-7.7) 10^3/ul Absolute Lymphs (auto) 1.3 (1.0-4.8) 10^3/ul Absolute Monos (auto) 0.4 (0-0.8) 10^3/ul Absolute Eos (auto) 0 (0-0.6) 10^3/ul Absolute Basos (auto) 0 (0-0.2) 10^3/ul Absolute Nucleated RBC 0.01 10^3/ul Nucleated RBC % 0.1 INR (Anticoag Therapy) 0.96 (0.89-1.11) Sodium (133-145) mmol/L Potassium (3.5-5.0) mmol/L Chloride (101-111) mmol/L Carbon Dioxide (22-32) mmol/L Anion Gap (2-11) mmol/L BUN (6-24) mg/dL Creatinine (0.67-1.17) mg/dL Est GFR ( Amer) (>60) Est GFR (Non-Af Amer) (>60) BUN/Creatinine Ratio (8-20) Glucose (70-100) mg/dL Lactic Acid (0.5-2.0) mmol/L Calcium (8.6-10.3) mg/dL Magnesium (1.9-2.7) mg/dL Total Bilirubin (0.2-1.0) mg/dL AST (13-39) U/L ALT (7-52) U/L Alkaline Phosphatase (34-104) U/L Total Protein (6.4-8.9) g/dL Albumin (3.2-5.2) g/dL Globulin (2-4) g/dL Albumin/Globulin Ratio (1-3) Urine Color Yellow Urine Appearance Clear Urine pH 6.0 (5-9) Ur Specific [place] 1.014 (1.010-1.030) Urine Protein Negative (Negative) Urine Ketones Trace H (Negative) Urine Blood Negative (Negative) Urine Nitrate Negative (Negative) Urine Bilirubin Negative (Negative) Urine Urobilinogen Negative (Negative) Ur Leukocyte Esterase Trace H (Negative) Urine WBC (Auto) Trace(0-5/hpf) (Absent) Urine RBC (Auto) Absent (Absent) Ur Squamous Epith Cells Present H (Absent) Urine Bacteria Absent (Absent) Urine Glucose Negative (Negative) Phenytoin (10-20) mcg/mL Valproic Acid (50-100) mcg/mL 12/11/16 12/11/16 Range/Units 15:52 15:52 WBC (3.5-10.8) 10^3/ul RBC (4.0-5.4) 10^6/ul Hgb (14.0-18.0) g/dl Hct (42-52) % MCV (80-94) fL MCH (27-31) pg MCHC (31-36) g/dl RDW (10.5-15) % Plt Count (150-450) 10^3/ul MPV (7.4-10.4) um3 Neut % (Auto) (38-83) % Lymph % (Auto) (25-47) % Coal % (Auto) (1-9) % Eos % (Auto) (0-6) % Baso % (Auto) (0-2) % Absolute Neuts (auto) (1.5-7.7) 10^3/ul Absolute Lymphs (auto) (1.0-4.8) 10^3/ul Absolute Monos (auto) (0-0.8) 10^3/ul Absolute Eos (auto) (0-0.6) 10^3/ul Absolute Basos (auto) (0-0.2) 10^3/ul Absolute Nucleated RBC 10^3/ul Nucleated RBC % INR (Anticoag Therapy) (0.89-1.11) Sodium 138 (133-145) mmol/L Potassium 3.7 (3.5-5.0) mmol/L Chloride 104 (101-111) mmol/L Carbon Dioxide 29 (22-32) mmol/L Anion Gap 5 (2-11) mmol/L BUN 17 (6-24) mg/dL Creatinine 1.24 H (0.67-1.17) mg/dL Est GFR ( Amer) 81.1 (>60) Est GFR (Non-Af Amer) 63.0 (>60) BUN/Creatinine Ratio 13.7 (8-20) Glucose 94 (70-100) mg/dL Lactic Acid 1.4 (0.5-2.0) mmol/L Calcium 8.9 (8.6-10.3) mg/dL Magnesium 1.8 L (1.9-2.7) mg/dL Total Bilirubin 0.40 (0.2-1.0) mg/dL AST 13 (13-39) U/L ALT 9 (7-52) U/L Alkaline Phosphatase 82 (34-104) U/L Total Protein 7.1 (6.4-8.9) g/dL Albumin 3.7 (3.2-5.2) g/dL Globulin 3.4 (2-4) g/dL Albumin/Globulin Ratio 1.1 (1-3) Urine Color Urine Appearance Urine pH (5-9) Ur Specific [place] (1.010-1.030) Urine Protein (Negative) Urine Ketones (Negative) Urine Blood (Negative) Urine Nitrate (Negative) Urine Bilirubin (Negative) Urine Urobilinogen (Negative) Ur Leukocyte Esterase (Negative) Urine WBC (Auto) (Absent) Urine RBC (Auto) (Absent) Ur Squamous Epith Cells (Absent) Urine Bacteria (Absent) Urine Glucose (Negative) Phenytoin 3.3 L (10-20) mcg/mL Valproic Acid 59.0 (50-100) mcg/mL Result Diagrams: 12/11/16 15:52 12/11/16 15:52 Lab Statement: Any lab studies that have been ordered have been reviewed, and results considered in the medical decision making process. Course/Dx - Course Course Of Treatment: Mr. Zhu has a history of psychogenic nonepileptic seizures and apparently had several events at home today. He had none here and his W/U was OK except for a low anticonvulsant level and I recommended he take his meds as prescribed and F/U with Dr. Healy. - Diagnoses Provider Diagnoses: Psychogenic nonepileptic seizure Discharge - Discharge Plan Condition: Stable Disposition: HOME Patient Education Materials: Recurrent Seizures in Adults (ED) Referrals: Tapan Morales MD [Primary Care Provider] - Rosalinda Healy MD [Medical Doctor] - Additional Instructions: Please follow up with Dr. Healy. The documentation as recorded by the Keke weiss Erika accurately reflects the service I personally performed and the decisions made by me, Robb Royal MD.
== END 2016-12-11 18:21 | disposition home or self-care (01) ==
LOC: ED 14:53
DX: G40.89 Other seizures (principal); R19.7 Diarrhea, unspecified; R51 Headache
CPT/HCPCS: 36415; 80053; 80164; 80185; 81003; 81015; 83605; 83735; 85025; 85610; 87086; 99282

== ENCOUNTER 2016-12-14 23:14 | Emergency (ER) | payer MEDICAID, OTHER ==
[2016-12-14] MEDS ORDERED: NS 0.9% 1000 ML* 1,000 ML IV ONE (23:47)
[2016-12-14 23:54] LABS: Hematocrit 44 % (42-52); Hemoglobin 14.4 g/dl (14.0-18.0); Mean Corpuscular HGB Conc 33 g/dl (31-36); Mean Corpuscular Hemoglobin 28 pg (27-31); Mean Corpuscular Volume 86 fL (80-94); Mean Platelet Volume 8 um3 (7.4-10.4); Red Blood Count 5.07 10^6/ul (4.0-5.4); Red Cell Distribution Width 15 % (10.5-15)
[2016-12-15 00:06] LABS: ALT 8 U/L (7-52); AST 13 U/L (13-39); Alkaline Phosphatase 91 U/L (34-104); Anion Gap 6 mmol/L (2-11); BUN/Creatinine Ratio 12.5 (8-20); Blood Urea Nitrogen 15 mg/dL (6-24); CO2 Carbon Dioxide 29 mmol/L (22-32); Calcium 9.2 mg/dL (8.6-10.3); Chloride 101 mmol/L (101-111); EGFR African American 84.2 (>60); EGFR Non-African American 65.5 (>60); Globulin 3.8 g/dL (2-4); Glucose 99 mg/dL (70-100); Magnesium 1.7 mg/dL (1.9-2.7); Potassium 4.1 mmol/L (3.5-5.0); Sodium 136 mmol/L (133-145); Total Protein 7.8 g/dL (6.4-8.9)
[2016-12-15 03:05] LABS: Valproic Acid < 13.0 mcg/mL (50-100)
[2016-12-15 03:45] VITALS: BP 132/70
--- NOTE | 2016-12-15 04:33 | ED ---
Nilda Hoskins Anna, scribed for Vamshi Cueva on 12/14/16 at 2345 . Neurological HPI - HPI Summary HPI Summary: Patient is a 46 y/o male coming to [facility] presenting with a CC of seizure that occurred this evening. He was incontinent of urine and hit his head during his seizure. He denies LOC. He has current neck pain, of severity 10/10, and right knee pain. Patient was seen at [facility] on 12/11/2016 for the same CC. He takes 500 mg Kappra 2x/day, 400 Dilantin 1x/day, and 1500 mg Depakotes 2x/day normally. He ran out of his Depakote yesterday. His history is significant for vertigo, migraines, seizures. He is followed by Dr. Morales and Dr. Healy. - History of Current Complaint Stated Complaint: POSS SEIZURE Time Seen by Provider: 12/14/16 23:35 Hx Obtained From: Patient Onset/Duration: Sudden Onset, Resolved Timing: Intermittent Episodes Lasting: - seconds Onset Severity: Moderate Current Severity: None - Additional Pertinent History Primary Care Physician: [id number] - Allergy/Home Medications Allergies/Adverse Reactions: Allergies Allergy/AdvReac Type Severity Reaction Status Date / Time Acetaminophen [From Tylenol] Allergy Vomiting Verified 11/08/16 14:02 Aspirin Allergy Vomiting Verified 11/08/16 14:02 Ibuprofen Allergy Vomiting Verified 11/08/16 14:02 Soy Allergy Allergy See Comment Verified 11/08/16 14:02 PMH/Surg Hx/FS Hx/Imm Hx Endocrine/Hematology History: Denies: Hx Diabetes Cardiovascular History: Denies: Hx Hypertension, Hx Pacemaker/ICD Respiratory History: Reports: Hx Chronic Obstructive Pulmonary Disease (COPD) Denies: Hx Asthma History: Denies: Hx Renal Disease Sensory History: Denies: Hx Contacts or Glasses, Hx Hearing Aid Opthamlomology History: Denies: Hx Contacts or Glasses Neurological History: Reports: Hx CVA, Hx Migraine, Hx Seizures, Other Neuro Impairments/Disorders - Vertigo Psychiatric History: Reports: Hx Panic Disorder, Hx of Violent Episodes Against Others Denies: Hx Eating Disorder - Surgical History Surgery Procedure, Year, and Place: DOUBLE HERNIA REPAIR; - Family History Known Family History: Positive: Cardiac Disease, Hypertension, Diabetes - Social History Alcohol Use: Occasionally Hx Substance Use: No Substance Use Type: Reports: None Substance Use Comment - Amount & Last Used: occasionally Smoking Status (MU): Never Smoked Tobacco Review of Systems Positive: incontinence - of urine Positive: Arthralgia - knee pain, neck pain Neurological: Other - seizure, head injury All Other Systems Reviewed And Are Negative: Yes Physical Exam Triage Information Reviewed: Yes Vital Signs On Initial Exam: Temp Pulse Resp BP Pulse Ox 98.6 F 86 12 122/80 100 12/14/16 23:39 12/14/16 23:39 12/14/16 23:39 12/14/16 23:39 12/14/16 23:39 Vital Signs Reviewed: Yes Appearance: Positive: Well-Appearing, No Pain Distress Skin: Positive: Warm, Skin Color Reflects Adequate Perfusion Head/Face: Positive: Normal Head/Face Inspection Eyes: Positive: EOMI, MANUELA ENT: Positive: Normal ENT inspection Neck: Positive: Other: - Mild tenderness in neck Respiratory/Lung Sounds: Positive: Clear to Auscultation, Breath Sounds Present Cardiovascular: Positive: RRR, Pulses are Symmetrical in both Upper and Lower Extremities Abdomen Description: Positive: Nontender, Soft Bowel Sounds: Positive: Present Musculoskeletal: Positive: Normal, Strength/ROM Intact Neurological: Positive: Normal, Sensory/Motor Intact, Alert, Oriented to Person Place, Time Diagnostics - Laboratory Result Diagrams: 12/14/16 23:32 12/14/16 23:32 Lab Statement: Any lab studies that have been ordered have been reviewed, and results considered in the medical decision making process. - CT BRAIN CT CT Interpretation: No Acute Changes - IMPRESSION: NO ACUTE INTRACRANIAL ABNORMALITY. NO HEMMORRHAGE. NO VISIBLE INFARCT OR MASS. OSSEOUS STRUCTURES ARE INTACT. CT Interpretation Completed By: Radiologist - STEAM FITTER SUPERVISOR MAINTENANCE CT SPINE CT Interpretation: No Acute Changes - IMPRESSION: NEGATIVE FOR CERVICAL FRACTURE OR MALALIGNMENT. DEGENERATIVE CHANGES. CT Interpretation Completed By: Radiologist - STEAM [employer]TER SUPERVISOR MAINTENANCE Course/Dx - Course Course Of Treatment: This is a 46 y/o male with seizures. Labs and CT were negative. His valproic acid level was low. He will be discharged and should follow up with his primary in 3 days. - Diagnoses Provider Diagnoses: Seizure disorder Discharge - Discharge Plan Condition: Stable Disposition: HOME Discharge Disposition Comment: Please follow up with your primary care provider within 3 days. Patient Education Materials: Recurrent Seizures in Adults (ED) Referrals: Tapan Morales MD [Primary Care Provider] - The documentation as recorded by the Nilda weiss Anna accurately reflects the service I personally performed and the decisions made by me, Vamshi Cueva.
--- NOTE | 2016-12-15 10:19 | RAD ---
indication: Seizure followed by head and neck trauma. Now with "neck discomfort" COMPARISON: MRI of the brain dated November 05, [address] scan of the brain and c-spine was performed without intravenous contrast enhancement. Contiguous axial sections were obtained from the lung apices through the vertex. BRAIN: The ventricles, cisterns and sulci are within normal limits. No significant focal abnormality or mass effect is seen. The thompson-white differentiation is adequately maintained. There is no evidence for intracranial hemorrhage. No significant bony abnormality is present. The mastoid air cells are appropriately aerated. The visualized paranasal sinuses are clear. C-SPINE: On the sagittal view images there is mild straightening of the normal cervical lordosis. The vertebral bodies and facet joints are otherwise appropriately aligned. The dens is intact there is no atlantodental widening. Mild degenerative changes include loss of intervertebral disc height level and mild marginal osteophyte formation. On the coronal plane images there is a mild degree of uncovertebral hypertrophy at the mid cervical spine. There is no hyperdense material in the cervical canal to indicate hemorrhage. The visualized musculature and soft tissues are normal. There is no gross lymphadenopathy visualized. The visualized portion of the lung apices are clear. IMPRESSION: 1. Normal-appearing brain without fracture or acute intracranial hemorrhage. 2. Mild degenerative changes without fracture or dislocation of the cervical spine.
== END 2016-12-15 03:43 | disposition home or self-care (01) ==
LOC: ED 23:14
DX: G40.909 Epilepsy, unspecified, not intractable, without status epilepticus (principal); M25.569 Pain in unspecified knee; M54.2 Cervicalgia
CPT/HCPCS: 36415; 70450; 72125; 80053; 80164; 83735; 84484; 85025; 85610; 85730; 99283

== ENCOUNTER 2017-05-03 20:43 | Emergency (ER) | payer OTHER ==
[2017-05-03] MEDS ORDERED: NS 0.9% 1000 ML* 1,000 ML IV ONE (21:24)
[2017-05-03 21:54] LABS: Hematocrit 42 % (42-52); Hemoglobin 14.1 g/dl (14.0-18.0); Mean Corpuscular HGB Conc 34 g/dl (31-36); Mean Corpuscular Hemoglobin 30 pg (27-31); Mean Corpuscular Volume 90 fL (80-94); Mean Platelet Volume 9 um3 (7.4-10.4); Red Blood Count 4.64 10^6/ul (4.0-5.4); Red Cell Distribution Width 16 % (10.5-15); White Blood Count 4.8 10^3/ul (3.5-10.8)
[2017-05-03 22:05] LABS: ALT 28 U/L (7-52); Albumin 3.3 g/dL (3.2-5.2); Alkaline Phosphatase 39 U/L (34-104); Blood Urea Nitrogen 17 mg/dL (6-24); CO2 Carbon Dioxide 31 mmol/L (22-32); Calcium 8.3 mg/dL (8.6-10.3); Chloride 102 mmol/L (101-111); EGFR African American 96.7 (>60); EGFR Non-African American 75.2 (>60); Globulin 2.6 g/dL (2-4); Glucose 139 mg/dL (70-100); Sodium 140 mmol/L (133-145); Total Protein 5.9 g/dL (6.4-8.9)
[2017-05-03 22:48] LABS: Anion Gap 7 mmol/L (2-11)
[2017-05-04 00:52] VITALS: BP 117/77
--- NOTE | 2017-05-16 23:57 | ED ---
Lorenzo Hoskins Rebecca, scribed for Vamshi Cueva on 05/03/17 at 2127 . Neurological HPI - HPI Summary HPI Summary: Pt is a 47 y/o M who presents to ED s/p 3 seizures. Seizures occurred at approximately 1930 today and 2 of them were witnessed by the [facility] accompanying the pt. [facility] reports he had positive LOC. Pt reports myalgias and memory loss, stating that he does not remember the episodes and only has the knowledge of what others tell him. Unsure of last incidence of seizures prior to today's. PMHx seizures - saw Dr. Healy 2-3 days ago where she decreased his Keppra dosage from 1000 mg to 500 mg. - History of Current Complaint Chief Complaint: EDSeizure Stated Complaint: SEIZURES Time Seen by Provider: 05/03/17 21:18 Hx Obtained From: Patient Onset/Duration: Resolved Timing: Intermittent Episodes Lasting: - 3 episodes of serizures Number of Seizures: 3 Pain Intensity: 10 - Myalgias Pain Scale Used: 0-10 Numeric Syncope Context: Witnessed, Loss of Consciousness: Yes Aggravating: Nothing Alleviating: Spontanious Resolution Associated Signs and Symptoms: Positive: Memory Loss Similar Episode/Dx as: PMhx seizures - Additional Pertinent History Primary Care Physician: [id number] - Allergy/Home Medications Allergies/Adverse Reactions: Allergies Allergy/AdvReac Type Severity Reaction Status Date / Time Acetaminophen [From Tylenol] Allergy Vomiting Verified 05/03/17 20:54 Aspirin Allergy Vomiting Verified 05/03/17 20:54 Ibuprofen Allergy Vomiting Verified 05/03/17 20:54 Soy Allergy Allergy See Comment Verified 05/03/17 20:54 Home Medications: Home Medications levETIRAcetam TAB* [Keppra TAB*] 500 mg PO DAILY 05/03/17 [History Confirmed ] PMH/Surg Hx/FS Hx/Imm Hx Endocrine/Hematology History: Denies: Hx Diabetes Cardiovascular History: Denies: Hx Hypertension, Hx Pacemaker/ICD Respiratory History: Reports: Hx Chronic Obstructive Pulmonary Disease (COPD) Denies: Hx Asthma History: Denies: Hx Renal Disease Sensory History: Denies: Hx Contacts or Glasses, Hx Hearing Aid Opthamlomology History: Denies: Hx Contacts or Glasses Neurological History: Reports: Hx CVA, Hx Migraine, Hx Seizures, Other Neuro Impairments/Disorders - Vertigo Psychiatric History: Reports: Hx Panic Disorder, Hx of Violent Episodes Against Others Denies: Hx Eating Disorder - Surgical History Surgery Procedure, Year, and Place: DOUBLE HERNIA REPAIR; - Immunization History Date of Tetanus Vaccine: utd Date of Influenza Vaccine: utd Infectious Disease History: No Infectious Disease History: Denies: Traveled Outside the [place] in Last 30 Days - Family History Known Family History: Positive: Cardiac Disease, Hypertension, Diabetes - Social History Alcohol Use: None Hx Substance Use: No Substance Use Type: Reports: Marijuana Substance Use Comment - Amount & Last Used: occasionally Smoking Status (MU): Never Smoked Tobacco Review of Systems Positive: Myalgia Neurological: Other - S/p 3 seizures with LOC, memory loss All Other Systems Reviewed And Are Negative: Yes Physical Exam - Summary Physical Exam Summary: Appearance: Well appearing, no pain distress Skin: warm, dry, reflects adequate perfusion Head/face: normal Eyes: EOMI, MANUELA ENT: normal Neck: supple, nontender Respiratory: CTA, breath sounds present Cardiovascular: RRR, pulses symmetrical Abdomen: nontender, soft Bowel: present Musculoskeletal: normal, strength/ROM intact Neuro: normal, sensory motor intact, A&Ox3 Triage Information Reviewed: Yes Vital Signs On Initial Exam: Initial Vitals Temp Pulse Resp BP Pulse Ox 99.1 F 107 14 145/113 98 05/03/17 20:49 05/03/17 20:49 05/03/17 20:49 05/03/17 20:49 05/03/17 20:49 Vital Signs Reviewed: Yes - Rodrigo Coma Scale Coma Scale Total: 15 Diagnostics - Vital Signs Vital Signs Temp Pulse Resp BP Pulse Ox 05/03/17 20:49 99.1 F 107 14 145/113 98 - Laboratory Result Diagrams: 05/03/17 21:42 05/03/17 21:42 Lab Statement: Any lab studies that have been ordered have been reviewed, and results considered in the medical decision making process. - EKG 2146 Cardiac Rate: NL - 69 bpm EKG Rhythm: Sinus Rhythm EKG Interpretation: No acute changes Course/Dx - Course Assessment/Plan: Pt is a 47 y/o M who presents to ED s/p 3 seizures. Seizures occurred at approximately 1930 today and 2 of them were witnessed by the [facility] accompanying the pt. [facility] reports he had positive LOC. Pt reports myalgias and memory loss, stating that he does not remember the episodes and only has the knowledge of what others tell him. Unsure of last incidence of seizures prior to today's. PMHx seizures - saw Dr. Healy 2-3 days ago where she decreased his Keppra dosage from 1000 mg to 500 mg. EKG is sinus rhythm with no acute changes. Troponin of 0.00. Discussed care of pt with Dr. Mederos who advised an increase in Keppra dosage, 1 mg in the ED and a follow up with Dr. Healy. In the ED course, pt was given 1 g Keppra IV. He will be D/C to home with Dx of seizures, Rx for keppra and a follow up with Dr. Healy. He understands and agrees. Elevated BP noted and advised to f/u with PCP. Patient medicatoins reviewed this visit. - Diagnoses Provider Diagnoses: Recurrent seizures - Physician Notifications Discussed Care Of Patient With: Leonela Mederos Time Discussed With Above Provider: 23:16 Instructed by Provider To: Other - Discussed thept and she will call back. Dicsussed care of pt with Dr. Mederos again at 2326 who advised that he be given 1 gram of Keppra, increase the dose to 500 mg BID and follow up with Dr. Healy. Discharge - Discharge Plan Condition: Stable Disposition: HOME Prescriptions: Levetiracetam [Keppra 500] 500 mg PO BID #60 tab Patient Education Materials: Recurrent Seizures in Adults (ED) Referrals: [facility], [Primary Care Provider] - Rosalinda Healy MD [Medical Doctor] - 3 Days () Additional Instructions: Increase your Keppra dosage to 500 mg twice per day. The documentation as recorded by the Lorenzo weiss Rebecca accurately reflects the service I personally performed and the decisions made by me, Vamshi Cueva.
== END 2017-05-04 00:53 | disposition home or self-care (01) ==
LOC: ED 20:43
DX: G40.909 Epilepsy, unspecified, not intractable, without status epilepticus (principal); Z79.899 Other long term (current) drug therapy; Z88.8 Allergy status to other drugs, medicaments and biological substances
CPT/HCPCS: 36415; 80053; 84484; 85025; 93005; 96365; 99283

== ENCOUNTER 2017-10-08 11:42 | Emergency (ER) | payer OTHER ==
--- NOTE | 2017-10-08 12:56 | RAD ---
HISTORY: Shortness of breath, swelling COMPARISONS: None VIEWS: 2: Frontal and lateral views of the chest. FINDINGS: CARDIOMEDIASTINAL SILHOUETTE: The cardiomediastinal silhouette is normal. TIERRA: The tierra are normal. PLEURA: The costophrenic angles are sharp. No pleural abnormalities are noted. LUNG PARENCHYMA: The lungs are clear. ABDOMEN: The upper abdomen is clear. There is no subphrenic gas. BONES AND SOFT TISSUES: No bone or soft tissue abnormalities are noted. OTHER: None. IMPRESSION: NO ACTIVE CARDIOPULMONARY DISEASE.
[2017-10-08 13:09] LABS: Hematocrit 34 % (42-52); Hemoglobin 11.9 g/dl (14.0-18.0); Mean Corpuscular HGB Conc 35 g/dl (31-36); Mean Corpuscular Hemoglobin 33 pg (27-31); Mean Corpuscular Volume 95 fL (80-94); Mean Platelet Volume 8 um3 (7.4-10.4); Platelet Count 121 10^3/ul (150-450); Red Blood Count 3.59 10^6/ul (4.0-5.4); Red Cell Distribution Width 15 % (10.5-15); White Blood Count 6.6 10^3/ul (3.5-10.8)
[2017-10-08 13:19] LABS: INR 0.89 (0.77-1.02)
[2017-10-08 13:24] LABS: EGFR Non-African American 73.6 (>60)
--- NOTE | 2017-10-08 13:33 | ED ---
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 Also with a history of conversion disorder and diagnosed as a sociopath. Current medications include fludrocortisone 0.1 mg twice a day, hydrocortisone 20 mg 3 times a day, quetiapine, phenytoin, divalproex, lithium and haloperidol. Physician is Dr. Garay. However, he states the adrenal insufficiency medications have increased recently in the past 2 months and after being seen by his PCP, he was recommended to come to the ED for possible overdose on such meds. He was also noted to be hypotensive with 4+ leg edema prior to arrival. He wears compression hose up to the mid thigh daily, but he feels that this has not been helping. He endorses slight abdominal pain, excessive thirst, excessive craving for salt and other foods, he endorses a recent weight loss but was placed on a protein meal replacement and has gained most of this back. Denies any fever, nausea, vomiting. Denies any confusion disorientation or neuropsychiatric symptoms. - History Of Current Complaint Chief Complaint: EDGeneral Time Seen by Provider: 10/08/17 12:04 Hx Obtained From: Patient Onset/Duration: Sudden Onset Timing: Constant Severity Currently: Severe Severity Initially: Severe Character: Throbbing Associated Signs And Symptoms: Positive: Weakness, Other - Extreme fatigue, excessive thirst, frequent urination - Allergies/Home Medications Allergies/Adverse Reactions: Allergies Allergy/AdvReac Type Severity Reaction Status Date / Time acetaminophen [From Tylenol] Allergy Vomiting Verified 10/08/17 12:31 aspirin Allergy Vomiting Verified 10/08/17 12:32 ibuprofen Allergy Vomiting Verified 10/08/17 12:32 soy Allergy See Comment Verified 10/08/17 12:32 Home Medications: Home Medications Amino Acids/Protein Hydrolys [Liquacel 100 Liquid Packet] 30 ml PO TID 10/08/17 [History Confirmed 10/08/17] Haloperidol TAB* [Haldol TAB*] 5 mg PO BEDTIME 10/08/17 [History Confirmed 10/08] Hydrocortisone TAB* [Cortef TAB*] 60 mg PO TID 10/08/17 [History Confirmed 10/08] Violet Carbonate TAB* 300 mg PO QAM 10/08/17 [History Confirmed 10/08/17] Violet Carbonate TAB* 600 mg PO BEDTIME 10/08/17 [History Confirmed 10/08/17] Prazosin CAP* [Minipress CAP*] 1 mg PO 0700 10/08/17 [History Confirmed 10/08/17 ] Prazosin CAP* [Minipress CAP*] 2 mg PO BEDTIME 10/08/17 [History Confirmed 10/08] QUEtiapine TAB* [SEROquel TAB*] 200 mg PO BID 10/08/17 [History Confirmed ] QUEtiapine TAB* [SEROquel TAB*] 400 mg PO BEDTIME 10/08/17 [History Confirmed ] PMH/Surg Hx/FS Hx/Imm Hx Previously Healthy: Yes - Coventry's disease Endocrine/Hematology History: Denies: Hx Diabetes Cardiovascular History: Denies: Hx Hypertension, Hx Pacemaker/ICD Respiratory History: Reports: Hx Chronic Obstructive Pulmonary Disease (COPD) Denies: Hx Asthma History: Denies: Hx Renal Disease Sensory History: Denies: Hx Contacts or Glasses, Hx Hearing Aid Opthamlomology History: Denies: Hx Contacts or Glasses Neurological History: Reports: Hx CVA, Hx Migraine, Hx Seizures, Other Neuro Impairments/Disorders - Vertigo Psychiatric History: Reports: Hx Panic Disorder, Hx of Violent Episodes Against Others Denies: Hx Eating Disorder - Surgical History Surgery Procedure, Year, and Place: DOUBLE HERNIA REPAIR; - Immunization History Date of Tetanus Vaccine: utd Date of Influenza Vaccine: utd Hx Pertussis Vaccination: No Immunizations Up to Date: Unable to Obtain/Confirm Infectious Disease History: No Infectious Disease History: Denies: Traveled Outside the [place] in Last 30 Days - Family History Known Family History: Positive: Cardiac Disease, Hypertension, Diabetes - Social History Occupation: Unemployed Lives: Alone - correctional facility Alcohol Use: None Hx Substance Use: No Substance Use Type: Reports: Marijuana Substance Use Comment - Amount & Last Used: occasionally Smoking Status (MU): Never Smoked Tobacco Review of Systems Positive: Fatigue. Negative: Fever, Chills, Skin Diaphoresis Negative: Photophobia, Blurred Vision, Diplopia Negative: Sore Throat Negative: Palpitations, Chest Pain Positive: Shortness Of Breath. Negative: Cough Positive: Nausea. Negative: Abdominal Pain, Vomiting, Diarrhea Positive: hematuria, incontinence Positive: Myalgia, Edema - severe Skin: Negative Neurological: Negative All Other Systems Reviewed And Are Negative: Yes Physical Exam Triage Information Reviewed: Yes Vital Signs On Initial Exam: Initial Vitals Temp Pulse Resp BP Pulse Ox 97.9 F 89 16 134/78 98 10/08/17 11:57 10/08/17 11:57 10/08/17 11:57 10/08/17 11:57 10/08/17 11:57 Vital Signs Reviewed: Yes Appearance: Positive: Well-Appearing, Well-Nourished Skin: Positive: Warm, Skin Color Reflects Adequate Perfusion, Other - Severe edema bilaterally in the lower extremities Head/Face: Positive: Normal Head/Face Inspection Eyes: Positive: EOMI, MANUELA Respiratory/Lung Sounds: Positive: Clear to Auscultation, Breath Sounds Present Cardiovascular: Positive: RRR, Pulses are Symmetrical in both Upper and Lower Extremities Abdomen Description: Positive: Nontender Bowel Sounds: Positive: Present Musculoskeletal: Positive: Pain @ - Bilateral lower extremities Neurological: Positive: Speech Normal Psychiatric: Positive: Affect/Mood Appropriate Diagnostics - Vital Signs Vital Signs Temp Pulse Resp BP Pulse Ox 10/08/17 12:35 87 97 10/08/17 12:33 101/66 10/08/17 11:57 97.9 F 89 16 134/78 98 - Laboratory Lab Results: Lab Results 10/08/17 10/08/17 10/08/17 Range/Units 13:00 13:00 13:00 WBC 6.6 (3.5-10.8) 10^3/ul RBC 3.59 L (4.0-5.4) 10^6/ul Hgb 11.9 L (14.0-18.0) g/dl Hct 34 L (42-52) % MCV 95 H (80-94) fL MCH 33 H (27-31) pg MCHC 35 (31-36) g/dl RDW 15 (10.5-15) % Plt Count 121 L (150-450) 10^3/ul MPV 8 (7.4-10.4) um3 Neut % (Auto) Pending Lymph % (Auto) Pending Treutlen % (Auto) Pending Eos % (Auto) Pending Baso % (Auto) Pending Absolute Neuts (auto) Pending Absolute Lymphs (auto) Pending Absolute Monos (auto) Pending Absolute Eos (auto) Pending Absolute Basos (auto) Pending Absolute Nucleated RBC Pending Nucleated RBC % Pending INR (Anticoag Therapy) 0.89 (0.77-1.02) APTT 26.1 (26.0-36.3) seconds Sodium 138 (133-145) mmol/L Potassium 3.8 (3.5-5.0) mmol/L Chloride 97 L (101-111) mmol/L Carbon Dioxide 38 H (22-32) mmol/L Anion Gap 3 (2-11) mmol/L BUN 17 (6-24) mg/dL Creatinine 1.08 (0.67-1.17) mg/dL Est GFR ( Amer) 94.7 (>60) Est GFR (Non-Af Amer) 73.6 (>60) BUN/Creatinine Ratio 15.7 (8-20) Glucose 80 (70-100) mg/dL Calcium 8.4 L (8.6-10.3) mg/dL Magnesium 2.1 (1.9-2.7) mg/dL Total Bilirubin 0.30 (0.2-1.0) mg/dL AST 21 (13-39) U/L ALT 55 H (7-52) U/L Alkaline Phosphatase 43 (34-104) U/L CK-MB (CK-2) Pending Troponin I Pending Total Protein 5.5 L (6.4-8.9) g/dL Albumin 3.0 L (3.2-5.2) g/dL Globulin 2.5 (2-4) g/dL Albumin/Globulin Ratio 1.2 (1-3) TSH Pending Thyroxine (T4) Pending Cortisol Pending Result Diagrams: 10/08/17 13:00 10/08/17 13:00 Lab Statement: Any lab studies that have been ordered have been reviewed, and results considered in the medical decision making process. Complex Multi-Symp Course/Dx Course Of Treatment: During the course of treatment, the patient is evaluated for a possible overdose on his Florinef and hydrocortisone. Labs obtained, chest x-ray, EKG obtained. EKG shows sinus rhythm with borderline short NV interval. Labs are unremarkable including a cortisol level of only slightly elevated at 27. Dr. milner called in consultation. He suggests a reduction in both the hydrocortisone in the Florinef. He will begin to take 60 mg hydrocortisone daily at 20 mg 3 times a day. He will begin to take Florinef 0.1 mg daily. He will follow up with Dr. milner early next week. His incontinence symptoms over the past several months is likely not due to his Coventry's disease, but this cannot be confirmed. He will be referred to urology for further evaluation. He continues to drink by mouth liquids. He is given 2 L while in the ED and a lactic acid was rechecked. Lactic from a 4.4 to a 2.8. He is okay at this time for discharge and will follow-up with Dr. milner next week. He is also given a referral to urology. - Diagnoses Provider Diagnoses: Bilateral lower extremity edema Discharge - Discharge Plan Condition: Stable Disposition: HOME Referrals: No Primary Care Phys,NOPCP [Primary Care Provider] - Additional Instructions: After discussing the plan with Dr. milner, the following plan is made: U will decrease your fludrocortisone from 0.2 mg to 0.1 mg daily We will reduce your hydrocortisone from 120 mg daily to 60 mg daily He will follow up with Dr. milner early next week. Please call to make an appointment tomorrow morning. Continue wearing your compression hose
[2017-10-08 13:40] LABS: Urine Appearance Clear; Urine Blood Negative (Negative); Urine Color Colorless; Urine Ketones Negative (Negative); Urine Protein Negative (Negative); Urine Specific Gravity 1.001 (1.010-1.030); Urine Urobilinogen Negative (Negative)
[2017-10-08 14:20] LABS: ABS Basophils 0 10^3/ul (0-0.2); ABS Eosinophils 0 10^3/ul (0-0.6); ABS Lymphocytes 0.8 10^3/ul (1.0-4.8); ABS Monocytes 0.6 10^3/ul (0-0.8); ABS Neutrophils 5.2 10^3/ul (1.5-7.7); ABS Nucleated RBC 0 10^3/ul; Eosinophil % 0.1 % (0-6); Lymphocyte % 12.1 % (25-47); Nucleated Red Blood Cells % 0.5
[2017-10-08] MEDS ORDERED: NS 0.9% 1000 ML* 2,000 ML IV ONE (15:11)
[2017-10-08 17:23] VITALS: BP 115/71
== END 2017-10-08 17:30 | disposition home or self-care (01) ==
LOC: ED 11:42
DX: R60.0 Localized edema (principal); E27.1 Primary adrenocortical insufficiency
CPT/HCPCS: 36415; 71046; 80053; 81003; 82533; 82553; 83605; 83735; 83880; 84436; 84443; 84484; 85025; 85610; 85730; 93005; 99282